=== PATIENT | male | born 1950 | race Caucasian/White ===

== ENCOUNTER 2023-05-12 08:42 | Outpatient (CLI) | payer MEDICARE, SELFPAY ==
--- NOTE | 2023-05-12 08:50 | EST_ITS ---
Patient Info Name: Herman Smalls Age: 72 years : 1950 Gender: Male Ht: 70 in Wt: 198 lbs BSA: 2.12 m2 HR: 51 bpm Technical Quality: Good Exam Date: 05/12/2023 9:11 AM Exam Location: [facility] Patient Status: Outpatient Admit Date: 05/12/2023 Staff Ordering Physician: Nathan Echavarria MD Bioinformatics Associate: Mally Tee RDCS Attending Provider: MACHELLE CASTANEDA DO Referring Physician: Jericho BURNS; Exercise Technologist: Karen Hickman RDCS Exam Type: CA stress echo Study Info Indications R06.09 - Other forms of dyspnea Treadmill exercise stress echocardiogram is performed. Summary 1. 1. Negative Scott exercise stress test for ischemic ST changes by ECG criteria. 2. 2. Good functional capacity, achieving 10 METs of workload. 3. 3. Appropriate HR response to exercise. 4. 4. Appropriate HR recovery at 1 minute post exercise. 5. 5. Negative stress echocardiogram for ischemia by wall motion analysis. 6. 6. Patient informed of the above results. Stress Echo Findings Left Ventricle Appropriate increase in LV endocardial thickening with systole. Appropriate augmentation of contractility with systole. No wall motion abnormality. Left Ventricle Normal LV systolic function, no wall motion abnormality. Protocol: Scott Stress ECG Details Stage: REST Duration (min): 0 min : 51 sec Speed (mph): 0.0 Grade (%): 0 HR (bpm): 47 SBP (mmHg): 130 DBP (mmHg): 77 METS: --- Stage: REST Duration (min): 9 min : 42 sec Speed (mph): 0.0 Grade (%): 0 HR (bpm): 53 SBP (mmHg): 130 DBP (mmHg): 77 METS: --- Stage: STAGE 1 Duration (min): 1 min : 0 sec Speed (mph): 1.7 Grade (%): 10 HR (bpm): 77 SBP (mmHg): 130 DBP (mmHg): 77 METS: --- Stage: STAGE 1 Duration (min): 2 min : 0 sec Speed (mph): 1.7 Grade (%): 10 HR (bpm): 84 SBP (mmHg): 130 DBP (mmHg): 77 METS: --- Stage: STAGE 1 Duration (min): 3 min : 0 sec Speed (mph): 1.7 Grade (%): 10 HR (bpm): 89 SBP (mmHg): 153 DBP (mmHg): 70 METS: --- Stage: STAGE 2 Duration (min): 1 min : 0 sec Speed (mph): 2.5 Grade (%): 12 HR (bpm): 96 SBP (mmHg): 153 DBP (mmHg): 70 METS: --- Stage: STAGE 2 Duration (min): 2 min : 0 sec Speed (mph): 2.5 Grade (%): 12 HR (bpm): 100 SBP (mmHg): 165 DBP (mmHg): 73 METS: --- Stage: STAGE 2 Duration (min): 3 min : 0 sec Speed (mph): 2.5 Grade (%): 12 HR (bpm): 101 SBP (mmHg): 165 DBP (mmHg): 73 METS: --- Stage: STAGE 3 Duration (min): 1 min : 0 sec Speed (mph): 3.4 Grade (%): 14 HR (bpm): 111 SBP (mmHg): 183 DBP (mmHg): 83 METS: --- Stage: STAGE 3 Duration (min): 2 min : 0 sec Speed (mph): 3.4 Grade (%): 14 HR (bpm): 124 SBP (mmHg): 183 DBP (mmHg): 83 METS: --- Stage: STAGE 3 Duration (min): 2 min : 11 sec Speed (mph): 0.0 Grade (%): 0 HR (bpm): 127 SBP (mmHg): 183 DBP (mmHg): 83 METS: --- Stage: RECOVERY Duration (min):
== END 2023-05-12 08:43 | disposition home or self-care (01) ==
PROVIDERS: PCP Family Medicine; Visit Provider Family Medicine
DX: R06.09 Other forms of dyspnea (principal)
CPT/HCPCS: 93351

== ENCOUNTER 2023-08-22 11:54 | Emergency (ER) | payer MEDICARE, SELFPAY ==
--- NOTE | ~2023-08-22 | XR_ITS ---
XR elbow LT min 3V 08/22/2023 12:17 INDICATION: Left elbow pain PROCEDURE: 4 views left elbow COMPARISON: No prior studies for comparison. FINDINGS: Fracture, dislocation or subluxation is not identified. There is curvilinear ossification a long the medial humeral epicondyle, likely calcific tendinopathy. No significant joint effusion. Mode rate dorsal soft tissue swelling, nonspecific. No foreign bodies are identified. IMPRESSION: 1: NO ACUTE BONE OR JOINT ABNORMALITY IDENTIFIED. Reviewed, dictated and finalized at location A. ERN FINISHER
[2023-08-22 12:01] VITALS: BP 115/64; PULSE 62; RESP 20; TEMP 36.7; O2SAT 98
--- NOTE | 2023-08-22 13:20 | ED.GENADULT ---
HPI - General Adult General Chief complaint: Extremity Problem,Nontraumatic Stated complaint: elbow infection? Time Seen by Provider: 08/22/23 12:35 History of Present Illness HPI narrative: 72-year-old male presents to the emergency department for evaluation of left elbow pain. Patient states that he struck the left elbow on an arm rest. Patient states he initially had a lot of swelling and edema but that the erythema has begun to improve. Patient presents the ED complaining of persistent pain. Patient has normal range of motion Related Data Allergies Allergy/AdvReac Type Severity Reaction Status Date / Time No Known Allergies Allergy Verified 08/22/23 11:55 Review of Systems Review of Systems: All systems reviewed & are unremarkable except as noted in HPI and below PMFSH Past Medical History Medical History BPH (benign prostatic hyperplasia) Overweight (BMI 25.0-29.9) Surgical History Surgical History History of arthroscopy of left shoulder (~10/24/10) History of arthroscopy of right shoulder (~2009) History of colonoscopy (~06/16/17) normal, repeat 5-7 years History of colonoscopy (~04/17/12) tubular adenoma Family History Family History Father Family history of blood dyscrasia, Onset Age: 46 Family history of cardiovascular disease, Onset Age: 46 Acute myocardial infarction, Onset Age: 46 Mother Family history of malignant neoplasm of ovary, Onset Age: 73 Other Family history of elevated blood lipids Social History Social History Smoking status: Former smoker Smoking end date: 08/25/96 Alcohol intake: current Drinks per week: 8 Substance use: never Substance use type: does not use Occupation/Education: retired Gender identity (if verbalized by the patient): Male Exam Narrative: APPEARANCE: Well appearing, no pain, no distress, well-nourished. HEAD: normocephalic, atraumatic. EYES: PERRLA/EOMI, conjunctivae clear. NOSE: Normal no drainage EARS:TMS clear with good light reflex. THROAT: Pharynx clear, no exudate. NECK: Supple. No adenopathy, no masses. RESPIRATORY: Airway patent, respirations nonlabored. Clear to auscultation bilaterally, no rales, rhonchi, wheezing. CARDIOVASCULAR: Regular rate and rhythm without murmurs rubs or gallops. ABDOMINAL: Soft, nontender, nondistended, normal bowel sounds MUSCULOSKELETAL: Swollen bursa of the left elbow, minimal overlying erythema NEURO: Alert. Cranial nerves II through XII intact. Grossly intact SKIN: Warm, dry. Normal Color Course Course Emergency Course: 72-year-old male presenting ED for evaluation of left elbow pain. X-ray was negative for acute fracture dislocation. Patient's exam is consistent with a bursitis. Low concern for septic bursitis but patient does describe some previous overlying erythema. Patient will be started on a short course antibiotics and patient was advised on treatment plan for home. All questions and concerns were addressed patient was comfortable with plan for discharge and close follow-up. Vital Signs Vital signs: Vital Signs Temperature 98.0 F 08/22/23 12:01 Pulse Rate 62 08/22/23 12:01 Respiratory Rate 20 08/22/23 12:01 Blood Pressure 115/64 08/22/23 12:01 Pulse Oximetry 98 08/22/23 12:01 Oxygen Delivery Room Air 08/22/23 12:01 Temperature 98.0 F 08/22/23 12:01 Pulse Rate 62 08/22/23 12:01 Respiratory Rate 20 08/22/23 12:01 Blood Pressure 115/64 08/22/23 12:01 Pulse Oximetry 98 08/22/23 12:01 Oxygen Delivery Room Air 08/22/23 12:01 Medical Decision Making Differential Diagnosis Differential Diagnosis: Bursitis, septic arthritis, septic bursitis, elbow contusion, elbow fracture Vital Signs Priyanka
== END 2023-08-22 13:41 | disposition home or self-care (01) ==
PROVIDERS: Emergency Provider Emergency Medicine; PCP Family Medicine
DX: M71.9 Bursopathy, unspecified (principal); N40.0 Benign prostatic hyperplasia without lower urinary tract symptoms; E66.3 Overweight; Z68.28 Body mass index [BMI] 28.0-28.9, adult; Z87.891 Personal history of nicotine dependence; W22.8XXA Striking against or struck by other objects, initial encounter
CPT/HCPCS: 73080; 99283

== ENCOUNTER 2023-11-04 00:50 | Day surgery (SDC) | payer MEDICARE, SELFPAY ==
[2023-10-22 10:21] VITALS: BMI 29.9
--- NOTE | 2023-10-31 10:05 | SUR.PREOP ---
Patient called regarding upcoming procedure. Voicemail left regarding appointment times.
[2023-11-04 06:56] VITALS: BP 147/96; PULSE 69; RESP 20; TEMP 36.3; O2SAT 100; BMI 29.1
[2023-11-04] MEDS: LACTATED RINGERS 1,000 ML 150 ML IV CONT (07:00)
--- NOTE | 2023-11-04 07:08 | WPDANESEPPF ---
Anes - Initial Pre Proc Eval Procedure: Operation Date: 11/04/23 08:00 Proposed Procedures p Screening Colonoscopy - Rudy Lemus MD Date/Time: 11/04/23 07:08 Surgeon: Rudy Lemus MD Pre Op Diagnosis: neoplasm screening Patient Data Age: 72 Gender: M Height: 1.75 m Weight: 89.6 kg Last Vital Signs Temp 36.3 C L 11/04/23 06:56 Pulse 69 11/04/23 06:56 Resp 20 11/04/23 06:56 BP 147/96 H 11/04/23 06:56 Pulse Ox 100 11/04/23 06:56 O2 Del Method Room Air 11/04/23 06:56 Allergies Allergy/AdvReac Type Severity Reaction Status Date / Time No Known Allergies Allergy Verified 11/04/23 06:54 Home Medications Medication Instructions Recorded Confirmed Type atorvastatin 10 mg tablet 10 mg PO DAILY #90 tabs 01/24/23 11/04/23 Rx fenofibrate nanocrystallized 145 145 mg PO DAILY #90 tabs 01/24/23 11/04/23 Rx mg tablet finasteride 5 mg tablet 5 mg PO DAILY #90 tabs 01/24/23 11/04/23 Rx solifenacin 5 mg tablet (Vesicare) 5 mg PO DAILY #90 tabs 01/24/23 11/04/23 Rx losartan 100 1 tablet PO DAILY #90 tabs 07/22/23 11/04/23 Rx mg-hydrochlorothiazide 25 mg tablet metoprolol tartrate 50 mg tablet 50 mg PO Q12H #180 tabs 07/22/23 11/04/23 Rx sertraline 50 mg tablet 50 mg PO DAILY #90 tabs 07/22/23 11/04/23 Rx spironolactone 50 mg tablet 25 mg PO DAILY #90 tabs 07/22/23 11/04/23 Rx metformin 500 mg 24 hr 500 mg PO DAILY #90 tabs 07/24/23 11/04/23 Rx tablet,extended release (gastric retention) cephalexin 250 mg capsule 250 mg PO Q8H 7 days #21 caps 10/13/23 10/22/23 Rx cephalexin 500 mg capsule 500 mg PO Q8H #21 caps 10/20/23 10/22/23 Rx fluticasone propionate 50 2 spray intranasal DAILY PRN 10/22/23 11/04/23 History mcg/actuation nasal Allergies spray,suspension (Flonase Allergy Relief) Patient hx anesthesia problems: none Family hx anesthesia problems: none Results Review: All pre-operative results and documents have been reviewed as part of the pre-operative evaluation. [facility] Past Medical History Medical History (Updated 11/04/23 @ 07:09 by Roland Quintana DO) BPH (benign prostatic hyperplasia) Cardiomegaly Diabetes type 2, controlled Essential (primary) hypertension Generalized anxiety disorder Mixed hyperlipidemia Obstructive sleep apnea CPAP Overweight (BMI 25.0-29.9) Surgical History Surgical History History of arthroscopy of left shoulder (~10/24/10) History of arthroscopy of right shoulder (~2009) History of colonoscopy (~06/16/17) normal, repeat 5-7 years History of colonoscopy (~04/17/12) tubular adenoma Family History Family History Father Family history of blood dyscrasia, Onset Age: 46 Family history of cardiovascular disease, Onset Age: 46 Acute myocardial infarction, Onset Age: 46 Mother Family history of malignant neoplasm of ovary, Onset Age: 73 Other Family history of elevated blood lipids Social History Social History Years smoked: 30 Smoking status: Former smoker Smoking end date: 08/25/96 Alcohol intake: current Drinks per week: 6 Alcohol use details: 6 beers/week Substance use: never Substance use type: marijuana Other substance usage details: 2x/week Living arrangements: with family Occupation/Education: retired Gender identity (if verbalized by the patient): Male Spiritual care concerns: No Anes - Eval Final PreProcedure Day of Procedure 11/04/23 07:08 Patient weight: overweight Heart: regular rate and rhythm Lungs: clear to auscultation Airway: Mallampati scale class II Neurological: alert and oriented Last oral intake: >/= 8 hours ASA classification: III Emergent: no Anesthetic plan: proceed Anesthesia type and monitoring: general GIVS and standard mo
[2023-11-04 07:20] LABS: Glucose Point of Care 102 mg/dl (65-105)
--- NOTE | 2023-11-04 07:56 | PM.HPGS ---
History of Present Illness History of Present Illness Consent: Risks, benefits, and alternatives have been discussed and questions answered. Patient agrees to proceed with procedure. Chief complaint: neoplasm screening Narrative: Herman Smalls is a 72 year old male here for screening colonoscopy, last one 2016 Review of Systems Review of Systems: All systems reviewed & are unremarkable except as noted in HPI and below PMFSH Past Medical History Medical History (Updated 11/04/23 @ 07:56 by Rudy Lemus MD) BPH (benign prostatic hyperplasia) Cardiomegaly Colon cancer screening Diabetes type 2, controlled Essential (primary) hypertension Generalized anxiety disorder Mixed hyperlipidemia Obstructive sleep apnea CPAP Overweight (BMI 25.0-29.9) Surgical History Surgical History History of arthroscopy of left shoulder (~10/24/10) History of arthroscopy of right shoulder (~2009) History of colonoscopy (~06/16/17) normal, repeat 5-7 years History of colonoscopy (~04/17/12) tubular adenoma Family History Family History Father Family history of blood dyscrasia, Onset Age: 46 Family history of cardiovascular disease, Onset Age: 46 Acute myocardial infarction, Onset Age: 46 Mother Family history of malignant neoplasm of ovary, Onset Age: 73 Other Family history of elevated blood lipids Social History Social History Years smoked: 30 Smoking status: Former smoker Smoking end date: 08/25/96 Alcohol intake: current Drinks per week: 6 Alcohol use details: 6 beers/week Substance use: never Substance use type: marijuana Other substance usage details: 2x/week Living arrangements: with family Occupation/Education: retired Gender identity (if verbalized by the patient): Male Spiritual care concerns: No Meds Home Medications and Allergies Home Medications Medication Instructions Recorded Confirmed Type atorvastatin 10 mg tablet 10 mg PO DAILY #90 tabs 01/24/23 11/04/23 Rx fenofibrate nanocrystallized 145 145 mg PO DAILY #90 tabs 01/24/23 11/04/23 Rx mg tablet finasteride 5 mg tablet 5 mg PO DAILY #90 tabs 01/24/23 11/04/23 Rx solifenacin 5 mg tablet (Vesicare) 5 mg PO DAILY #90 tabs 01/24/23 11/04/23 Rx losartan 100 1 tablet PO DAILY #90 tabs 07/22/23 11/04/23 Rx mg-hydrochlorothiazide 25 mg tablet metoprolol tartrate 50 mg tablet 50 mg PO Q12H #180 tabs 07/22/23 11/04/23 Rx sertraline 50 mg tablet 50 mg PO DAILY #90 tabs 07/22/23 11/04/23 Rx spironolactone 50 mg tablet 25 mg PO DAILY #90 tabs 07/22/23 11/04/23 Rx metformin 500 mg 24 hr 500 mg PO DAILY #90 tabs 07/24/23 11/04/23 Rx tablet,extended release (gastric retention) cephalexin 250 mg capsule 250 mg PO Q8H 7 days #21 caps 10/13/23 10/22/23 Rx cephalexin 500 mg capsule 500 mg PO Q8H #21 caps 10/20/23 10/22/23 Rx fluticasone propionate 50 2 spray intranasal DAILY PRN 10/22/23 11/04/23 History mcg/actuation nasal Allergies spray,suspension (Flonase Allergy Relief) Allergies Allergy/AdvReac Type Severity Reaction Status Date / Time No Known Allergies Allergy Verified 11/04/23 06:54 Vital Signs Vital Signs - 24 hr 11/04/23 06:56 Temperature 97.3 F L Pulse Rate 69 Respiratory Rate 20 Blood Pressure 147/96 H Pulse Oximetry 100 Oxygen Delivery Room Air Exam Const: General: comfortable and no acute distress HENMT: Face/Nose/Sinus: Normal nares present Eyes: General: appearance normal, both eyes and all related structures Neck: Neck: no JVD Resp: Auscultation: clear to auscultation bilaterally Cardio: Rate: regular rate Rhythm: regular rhythm GI: Inspection: non-distended GI Palp: Yes Soft to palpation Skin: General skin exam: normal color Neuro: General: gait n
[2023-11-04 08:13] VITALS: BP 129/90; PULSE 59; RESP 14; O2SAT 97
[2023-11-04 08:23] VITALS: BP 130/77; PULSE 52; RESP 25; O2SAT 97
[2023-11-04 08:33] VITALS: BP 140/74; PULSE 55; RESP 23; O2SAT 99
== END 2023-11-04 08:36 | disposition home health service (06) ==
PROVIDERS: PCP Family Medicine; Visit Provider Internal Medicine Gastroenterology
PROC: 0DJD8ZZ Inspection of Lower Intestinal Tract, Via Natural or Artificial Opening Endoscopic (ICD-10-PCS; CPT 45378; principal; 2023-11-04 08:00)
DX: Z12.11 Encounter for screening for malignant neoplasm of colon (principal); C7A.021 Malignant carcinoid tumor of the cecum; K57.30 Diverticulosis of large intestine without perforation or abscess without bleeding; K64.8 Other hemorrhoids; N40.0 Benign prostatic hyperplasia without lower urinary tract symptoms; E11.9 Type 2 diabetes mellitus without complications; I10 Essential (primary) hypertension; F41.1 Generalized anxiety disorder; E78.2 Mixed hyperlipidemia; G47.33 Obstructive sleep apnea (adult) (pediatric); Z99.89 Dependence on other enabling machines and devices; F10.90 Alcohol use, unspecified, uncomplicated; Z86.010 Personal history of colon polyps; Z87.891 Personal history of nicotine dependence; Z79.2 Long term (current) use of antibiotics; Z79.899 Other long term (current) drug therapy
CPT/HCPCS: 45380; 82948; 88305; 88342; J2704; J7120

== ENCOUNTER 2024-03-30 15:48 | Emergency (ER) | payer MEDICARE, SELFPAY ==
[2024-03-30 15:50] VITALS: BP 158/82; PULSE 62; RESP 16; TEMP 36.2; O2SAT 100
--- NOTE | 2024-03-30 17:53 | ED.RECABL ---
HPI - Recheck/Abnormal Lab/Rx General Chief Complaint: Recheck/Abnormal Lab/Rx Stated Complaint: abnormal labs Time Seen by Provider: 03/30/24 17:07 Source: patient Mode of arrival: ambulatory Limitations: no limitations History of Present Illness HPI narrative: This is a 73-year-old male with PMH of neuroendocrine metastatic cancer who presents to the ED for abnormal lab values. Reports that he was having his monthly labs for a monthly injection. States that his creatinine was significantly elevated and that he should go to the ER. Patient states that he is asymptomatic at this time. Denies any medical complaint. is here bedside and states that he has been acting his normal self. Related Data Home Medications Medication Instructions Recorded Confirmed fluticasone propionate 50 2 spray intranasal DAILY PRN 10/22/23 11/04/23 mcg/actuation nasal Allergies spray,suspension (Flonase Allergy Relief) spironolactone 25 mg tablet mg PO 03/12/24 Allergies Allergy/AdvReac Type Severity Reaction Status Date / Time No Known Allergies Allergy Verified 03/12/24 09:27 Review of Systems Review of Systems: All systems as dictated in HPI [facility] Past Medical History Medical History BPH (benign prostatic hyperplasia) Cardiomegaly Colon cancer screening Diabetes type 2, controlled Essential (primary) hypertension Generalized anxiety disorder Mixed hyperlipidemia Obstructive sleep apnea CPAP Overweight (BMI 25.0-29.9) Surgical History Surgical History History of arthroscopy of left shoulder (~10/24/10) History of arthroscopy of right shoulder (~2009) History of colonoscopy (~06/16/17) normal, repeat 5-7 years History of colonoscopy (~04/17/12) tubular adenoma Family History Family History Father Family history of blood dyscrasia, Onset Age: 46 Family history of cardiovascular disease, Onset Age: 46 Acute myocardial infarction, Onset Age: 46 Mother Family history of malignant neoplasm of ovary, Onset Age: 73 Other Family history of elevated blood lipids Social History Social History Years smoked: 30 Smoking status: Former smoker Smoking end date: 08/25/96 Alcohol intake: current Drinks per week: 6 Alcohol use details: 6 beers/week Substance use: never Substance use type: marijuana Other substance usage details: 2x/week Living arrangements: with family Occupation/Education: retired Gender identity (if verbalized by the patient): Male Spiritual care concerns: No Exam Narrative: GENERAL: Well-appearing, well-nourished, and in no acute distress. HEAD: Normocephalic, atraumatic. EYES: PERRLA and EOMI. ENT: Nares clear, no rhinorrhea or epistaxis. Mucous membranes moist. Oropharynx without tonsillar hypertrophy exudate or other lesions. NECK: Supple. No adenopathy or masses. CHEST: No respiratory distress. Clear to auscultation. No wheezes rales or rhonchi HEART: Regular rate and rhythm. No murmur heard. Normal peripheral pulses. ABDOMEN: Soft, nontender, nondistended, normal active bowel sounds. MSK: Normal range of motion. No edema. SKIN: Warm, dry, no rash. NEURO: Alert and oriented x4. No focal deficits. PSYCH: Normal mood and affect. Course Vital Signs Vital signs: Vital Signs Temperature 97.1 F L 03/30/24 15:50 Pulse Rate 62 03/30/24 15:50 Respiratory Rate 16 03/30/24 15:50 Blood Pressure 158/82 H 03/30/24 15:50 Pulse Oximetry 100 03/30/24 15:50 Oxygen Delivery Room Air 03/30/24 15:50 Temperature 97.1 F L 03/30/24 15:50 Pulse Rate 52 L 03/30/24 18:43 Respiratory Rate 18 03/30/24 18:43 Blood Pressure 143/94 H 03/30/24 18:43 Pulse Oximetry 97
[2024-03-30 17:57] LABS: Basophils Percent Auto 0.4 % (0.2-1.2); Eosinophils Absolute Auto 0.1 K/mm3 (0-0.3); Eosinophils Percent Auto 1.2 % (0-4.4); Hematocrit 40.6 % (42.0-52.0); Hemoglobin 13.4 g/dL (14.0-18.0); Immature Granulocyte Absolute 0.02 K/mm3 (0.00-0.031); Immature Granulocyte Percent A 0.3 % (0-0.5); Lymphocytes Absolute Auto 1.57 K/mm3 (0.9-3.2); Lymphocytes Percent Auto 23.4 % (18.3-44.2); Mean Corpuscular Hemoglobin 29.9 pg (26-34); Mean Corpuscular Volume 90.6 fl (80-100); Mean Platelet Volume 9.7 fl (7.4-10.4); Monocytes Absolute Auto 0.6 K/mm3 (0.1-0.6); Monocytes Percent Auto 9.4 % (2.6-8.5); Neutrophils Absolute Auto 4.4 K/mm3 (1.3-6.7); Neutrophils Percent Auto 65.3 % (45.5-73.1); Platelet Count Result 187 k/mm3 (150-375); Red Blood Count 4.48 M/mm3 (4.6-6.20); Red Cell Distribution Width 14.1 % (11.5-14.5); White Blood Count 6.7 K/mm3 (4.5-10.0)
[2024-03-30 18:07] LABS: Anion Gap 12 mmol/L (4-12); Blood Urea Nitrogen 62 mg/dL (9-20); Calcium 9.9 mg/dL (8.4-10.2); Carbon Dioxide 25 mmol/L (22-30); Chloride 101 mmol/L (98-107); Estimated Glomerular Filt Rate 24; Glucose 106 mg/dL (65-110); Magnesium 1.8 mg/dL (1.6-2.3); Phosphorus 4.4 mg/dL (2.5-4.5); Potassium 5.5 mmol/L (3.4-5.0); Sodium 138 mmol/L (137-145)
[2024-03-30] MEDS: SODIUM CHLORIDE 0.9% IV 1,000 ML 999 ML IV CONT (18:40)
[2024-03-30 18:43] VITALS: BP 143/94; PULSE 52; RESP 18; O2SAT 97
[2024-03-30 18:49] LABS: Add Urine Microscopic? NO; Appearance Urine Clear (Clear); Bilirubin Urine Negative (Negative); Blood Urine Negative (Negative); Color Urine Yellow (Yellow); Glucose Urine UA Negative (Negative); Ketones Urine Trace mg/dL (Negative); Leukocyte Esterase Ur Negative LEU/UL (Negative); Nitrate Urine Negative (Negative); Protein Urine Negative (Negative); Specific Grav Ur 1.022 (1.001-1.035); Urobilinogen Urine 0.2 mg/dL (<2.0)
== END 2024-03-30 19:51 | disposition home or self-care (01) ==
PROVIDERS: Emergency Provider Physician Assistant; PCP Family Medicine
DX: R94.4 Abnormal results of kidney function studies (principal); E11.9 Type 2 diabetes mellitus without complications; I10 Essential (primary) hypertension; E78.2 Mixed hyperlipidemia; Z87.891 Personal history of nicotine dependence
CPT/HCPCS: 36415; 80048; 81003; 83735; 84100; 85025; 96360; 99283; J7030

== ENCOUNTER 2025-05-24 07:52 | Outpatient (CLI) | payer MEDICARE, SELFPAY ==
--- OUTSIDE RECORDS SUMMARY | 2025-05-24 07:59 | XMS_ITS | Encounter Summary ---
Author Organization [facility] Address [address] [place] [address] Phone Care Team Providers Care Tetryl Dissolver Operator Name Role Phone Nathan Echavarria MD Primary Care Provider [phone] Monico Bryant MD Unavailable [phone] Encounter Details Date Type Department Care Team (Latest Contact Info) Description 05/12/2023 Orders Only [facility] Scanning, Provider Social History Tobacco Use Types Packs/Day Years Used Date Smoking Tobacco: Never Assessed Sex and Gender Information Value Date Recorded Sex Assigned at Not on file Legal Sex Male 1:24 PM CDT Gender Identity Not on file Sexual Orientation Not on file documented as of this encounter Plan of Treatment Not on file documented as of this encounter Procedures Procedure Name Priority Date/Time Associated Diagnosis Comments CARDIOLOGY DOCUMENT SCAN 05/12/2023 documented in this encounter Results * Cardiology Document Scan (05/12/2023) Anatomical Region Laterality Modality Other us Provider Scanning CV CARDIAC SERVICES PROCEDURES Final Result documented in this encounter Visit Diagnoses Not on filedocumented in this encounter Care Teams Tetryl Dissolver Operator Relationship Specialty Start Date End Date Nathan Echavarria MD [address] [place] [address] PCP - General Family Medicine 11/11/23 Monico Bryant MD [address] [facility] [place] [address] Consulting Physician Medical Oncology 01/06/24 documented as of this encounter
--- OUTSIDE RECORDS SUMMARY | 2025-05-24 08:00 | XMS_ITS | Clinical Summary ---
Author Organization [facility] Address [address] [place] [address] Care Team Providers Care Identity Management Developer Name Role Phone Nathan Echavarria MD Primary Care Provider [phone] Monico Bryant MD Unavailable [phone] Allergies No known active allergies Medications solifenacin (VESIcare) 10 mg tablet Take 1 tablet (10 mg total) by mouth daily Active finasteride (PROSCAR) 5 mg tablet Take 1 tablet (5 mg total) by mouth daily Active atorvastatin (LIPITOR) 10 mg tablet Take 1 tablet (10 mg total) by mouth daily 12/16/19 24 Active fenofibrate nanocrystallized (TRICOR) 145 mg tablet Take 1 tablet (145 mg total) by mouth daily Active metFORMIN (GLUCOPHAGE) 500 mg tablet Take 1 tablet (500 mg total) by mouth 2 (two) times a day with meals Active alcohol swabs (Alcohol Wipes) pads, medicated Use as directed. 100 each 10/13/19 25 Active blood glucose diagnostic (glucose blood) strip Use as directed up to four times a day. 100 each 1 10/13/19 25 Active blood-glucose meter kit Use as directed. 1 kit 10/13/19 25 Active lancets misc Use as directed up to 4 times a day. 100 each 1 10/13/19 25 Active glucagon 1 mg kitIndications:Type 2 diabetes mellitus with hyperglycemia, without long-term current use of insulin (HCC) Inject 1 mg into the muscle once as directed by provider for low blood sugar, 70 or below. 1 kit 10/14/19 25 Active chlorhexidine (PERIDEX) 0.12 % oral rinse SWISH AND SPIT 15ML BY MOUTH FOR 30 SECONDS 2 TO 3 TIMES DAILY 10/27/19 25 Active sertraline (ZOLOFT) 100 mg tablet Take 1 tablet (100 mg total) by mouth daily 11/02/19 25 Active losartan-hydrochloro thiazide (HYZAAR) 100-25 mg per tablet Take 1 tablet by mouth daily 90 tablet 3 01/06/20 25 Active lanreotide acetate (LANREOTIDE SUBQ) Inject under the skin Active blood-glucose sensor (FreeStyle Ramon 3 Plus Sensor) device Use to check blood sugar continuously 2 each 01/20/20 25 Active insulin glargine (LANTUS) 100 unit/mL (3 mL) pen for injectionIndications :Type 2 diabetes mellitus with hyperglycemia, without long-term current use of insulin (HCC) Inject 6 Units under the skin nightly 6 mL 3 01/20/20 25 026 Active spironolactone (ALDACTONE) 25 mg tablet Take 1 tablet (25 mg total) by mouth daily 90 tablet 3 03/22/20 25 026 Active Active Problems Problem Noted Date Diagnosed Date Hyperosmolar hyperglycemic state (HHS) Severe protein-calorie malnutrition 10/14/2024 Type 2 diabetes mellitus wit h hyperglycemia, without long-term current use of insulin 10/12/2024 Assessment & Plan (10/14/2024 10:35 AM INSURANCE FOLLOW UP REP): Pt w/ symptomatic hyperglycemia w/ fatigue, polydipsia, polyuria, and 15lb weight loss w/ BG in th 550s and labs suggestive of dehydration and A1c 13.2. not meeting criteria for HHS or DKA. This appears to be an acute change and unclear precipitant but there is an association of worsening or precipitated diabetes related to NET. -c-peptide, type 1 profile, PATI -s/p IVF and hyperglycemia protocol. -Start basal bolus based on algorithm; increased to resistant dosing -DM educator, and nutrition consulted; seen on 10/13 and did well with education. -good glucose control achieved with lantus 22 units nightly and 7 units lispro TID. Will DC home with current regimen. Recommend close follow up with PCP for adjustment and continued monitoring. -endocrinology referral placed on discharge. Acute on chronic kidney failure 10/12/2024 Assessment & Plan (10/14/2024 10:32 AM INSURANCE FOLLOW UP REP): In the setting of severe hyperglycemia. Improved with IVF and improved glycemic control. Restarted aldactone and losartan. Encourage hydration and follow up with PCP for repeat labs next week to ensure continued improvement. High risk medication use 09/22/2024 Former tobacco use 09/22/2024 RAUDEL on CPAP 09/22/2024 Assessment & Plan (10/12/2024 4:58 PM INSURANCE FOLLOW UP REP): Home CPAP Mixed hyperlipidemia 03/11/2024 Assessment & Plan (10/12/2024 5:00 PM INSURANCE FOLLOW UP REP): Continue statin and fenofibrate Bradycardia 03/10/2024 Primary hypertension 03/10/2024 Assessment & Plan (10/14/2024 10:31 AM INSURANCE FOLLOW UP REP): Cont home losartan/hctz and spironolactone now that RASHAD and hyperkalemia improved. Recommend close OP follow up with PCP and repeat BMP in 1 week. 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 -Trikalinos is oncologist. Continue OP follow up. Resolved Problems Problem Noted Date Diagnosed Date Resolved Date Hyperosmolar hyperglycemic state (HHS) 10/12/2024 10/12/2024 Encounters Date Type Department Care Team Description 05/03/2025 11:[address] [facility] - Infusion [address] Floor 5 [place] [address] Neuroendocrine cancer (HCC) (Primary Dx) 05/03/2025 10:[address] [facility] - Lab Collection [address] 5 [place] [address] Neuroendocrine cancer (HCC) 04/05/2025 10:45 AM CDT Infusion [facility] - Infusion [address] 5 [place] [address] Neuroendocrine cancer (HCC) (Primary Dx) 04/05/2025 9:45 AM CDT Office Visit [facility] Medicine Oncology [address] [facility] Floor 5 [place] [address] Wanda Portillo NP Neuroendocrine cancer (HCC) (Primary Dx) 04/05/2025 8:[address] [facility] - Lab Collection [facility] [place] [address] Neuroendocrine cancer (HCC); Primary hypertension; Bradycardia; Coronary artery calcification seen on CAT scan; Mixed hyperlipidemia; High risk medication use 04/05/2025 Results Follow-Up [facility] [address] [place] [address] [address] [place] [address] Lindsay Montilla NP Lipid panel 03/31/2025 12:01 PM CDT - 03/31/2025 11:59 PM CDT Hospital Encounter [facility] - PET [address] [facility] [address] [place] [address] Discharge Disposition: Discharge to home or self care 03/31/2025 12:00 PM CDT - 03/31/2025 11:59 PM CDT Hospital Encounter [facility] - PET [address] [place] [address] Neuroendocrine cancer (HCC) Discharge Disposition: Discharge to home or self care 03/28/2025 1:00 PM CDT Office Visit [facility] [address] [place] [address] Floor 1, [address] [place] [id number] Lindsay Montilla NP Primary hypertension (Primary Dx); Neuroendocrine cancer (HCC); Bradycardia; Coronary artery calcification seen on CAT scan; Mixed hyperlipidemia; High risk medication use; Former tobacco use; RAUDEL on CPAP 03/08/2025 9:[address] [facility] - Infusion [address] 5 [place] [address] Neuroendocrine cancer (HCC) (Primary Dx) 03/08/2025 8:30 AM CDT Office Visit [facility] Medicine Oncology [address] [facility] Floor 5 [place] [address] Wanda Portillo NP Neuroendocrine cancer (HCC) (Primary Dx) 03/08/2025 7:[address] [facility] - Lab Collection [address] [facility] [address] [place] [address] Neuroendocrine cancer (HCC) from Last 3 Months Immunizations Immunization Administration Dates Next Due Influenza, Quadrivalent, Hig h Dose, Preservative Free, Intrr 10/24/2023,05/25/2022 Influenza, Quadrivalent, Rec ombinant, Egg Free, Preservative Free, Intramuscular 07/27/2020 Influenza, Trivalent, High D ose, Split, Preservative Free, Intramuscular 10/12/2024 Pneumococcal Conjugate Pcv20 10/24/2023,05/25/20 22 Pneumococcal Polysaccharide PPV23 11/29/2019 Medical History Medical History Date Comments Diabetes mellitus Hypertension Neuro-endocrine cancer (HCC) Family History Medical History Relation Name Comments Heart disease Father Ovarian cancer Mother Stroke Paternal Grandmother Crohn's disease Son Relation Name Status Comments Father Mother Paternal Grandmother Son Social History Tobacco Use Types Packs/Day Years Used Date Smoking Tobacco: Former Cigarettes 0 08/25/1977 - 08/25/1997 Passive Smoke Exposure: Past Smokeless Tobacco: Never Personal Safety Answer Date Recorded Have you ever been in or are you currently in a harmful physical or emotional relationship or is someone making you feel afraid or unsafe? Denies 10/12/2024 Sex and Gender Information Value Date Recorded Sex Assigned at Not on file Legal Sex Male 1:24 PM CDT Gender Identity Not on file Sexual Orientation Not on file Obstetrics History Last Filed Vital Signs Vital Sign Reading Time Taken Comments Blood Pressure 149/66 05/03/2025 11:34 AM CDT Pulse 51 05/03/2025 11:34 AM CDT Temperature 36.7 C (98.1 F) 05/03/2025 11:34 AM CDT Respiratory Rate 18 05/03/2025 11:3 4 AM CDT Oxygen Saturation 98% 05/03/2025 11: 34 AM CDT Inhaled Oxygen Concentration - - Weight 80.6 kg (177 lb 11.1 oz) 025 11:34 AM CDT Height 172.7 cm (5' 8) 04/05/2025 8:48 AM CDT Body Mass Index 27.02 04/05/2025 8:48 AM CDT Plan of Treatment Health Maintenance Due Date Last Done Comments Albumin Creatinine Ratio, Urine 1950 Colon Cancer Screening-Colonoscopy 1950 Depression Screening 1950 Hepatitis C Screening 1950 Dilated Eye Exam 1950 Foot Exam 1950 Hepatitis B Screening 1968 Zoster Vaccine (1 of 2) 1969 Well Visit 65+ 11/17/2015 DTaP/Tdap/Td Vaccine (2 - Td or Tdap) 11/05/2023 11/04/2013, 10/27/2003 Covid-19 Vaccine (2 6 season) 2025 05/25/2022, 06/13/2021, 11/18/2020, Additional history exists Influenza Vaccine (#1) 2025 , 06/10/2024, 10/24/2023, Additional history exists Hemoglobin A1C 07/22/2025 01/19/2025, 10/12/2024 Fall Risk Assessment 10/14/2025 10/14/2024 Lipid Panel 04/05/2026 04/05/2025, 03/30/2024 eGFR 05/03/2026 05/03/2025, 03/25, 03/08/2025, Additional history exists Pneumococcal vaccine 65+ Completed 024, 05/25/2022, 11/29/2019, Additional history exists Abdominal Aortic Aneurysm (A AA) Screen Completed 02/03/2025, 09/23/2024, 06/03/2024 Procedures Procedure Name Priority Date/Time Associated Diagnosis Comments DIFFERENTIAL AUTO STAT 05/03/2025 10:36 AM CDT Neuroendocrine cancer (HCC) EGFR STAT 05/03/2025 10:36 AM CDT Neuroendocrine cancer (HCC) CBC WITH AUTO DIFFERENTIAL STAT 05/03/2025 10:36 AM CDT Neuroendocrine cancer (HCC) COMPREHENSIVE METABOLIC PANEL STAT 05/03/2025 10:36 AM CDT Neuroendocrine cancer (HCC) SEROTONIN Routine 05/03/2025 10:36 AM CDT Neuroendocrine cancer (HCC) CHROMOGRANIN A Routine 05/03/2025 10:26 AM CDT Neuroendocrine cancer (HCC) EGFR STAT 04/05/2025 8:41 AM CDT Neuroendocrine cancer (HCC) DIFFERENTIAL AUTO STAT 04/05/2025 8:4 1 AM CDT Neuroendocrine cancer (HCC) LIPID PANEL Routine 04/05/2025 8:41 AM CDT Primary hypertension Neuroendocrine cancer (HCC) Bradycardia Coronary artery calcification seen on CAT scan Mixed hyperlipidemia High risk medication use CBC WITH AUTO DIFFERENTIAL STAT 04/05/2025 8:41 AM CDT Neuroendocrine cancer (HCC) COMPREHENSIVE METABOLIC PANEL STAT 04/05/2025 8:41 AM CDT Neuroendocrine cancer (HCC) CHROMOGRANIN A Routine 04/05/2025 8:41 AM CDT Neuroendocrine cancer (HCC) SEROTONIN Routine 04/05/2025 8:41 AM CDT Neuroendocrine cancer (HCC) PET/CT GA-68 DOTATATE SKULL TO THIGH Schedule Routine, Read Routine (OP Routine) 03/31/2025 2:17 PM CDT Neuroendocrine cancer (HCC) EGFR STAT 03/08/2025 7:29 AM CDT Neuroendocrine cancer (HCC) DIFFERENTIAL AUTO STAT 03/08/2025 7:2 9 AM CDT Neuroendocrine cancer (HCC) CBC WITH AUTO DIFFERENTIAL STAT 03/08/2025 7:29 AM CDT Neuroendocrine cancer (HCC) COMPREHENSIVE METABOLIC PANEL STAT 03/08/2025 7:29 AM CDT Neuroendocrine cancer (HCC) CHROMOGRANIN A Routine 03/08/2025 7:29 AM CDT Neuroendocrine cancer (HCC) SEROTONIN Routine 03/08/2025 7:29 AM CDT Neuroendocrine cancer (HCC) CT CHEST ABDOMEN PELVIS W CONTRAST Schedule Routine, Read Routine (OP Routine) 02/03/2025 10:09 AM CDT Neuroendocrine cancer (HCC) POCT HEMOGLOBIN A1C Routine 01/19/2025 9 :59 AM CDT Type 2 diabetes mellitus with hyperglycemia, without long-term current use of insulin (HCC) from Last 3 Months or Most Recently Relevant to Health Maintenance Results * (ABNORMAL) eGFR (05/03/2025 10:36 AM CDT) eGFR 48(L) >=60 mL/min/1. 73 m2 Comment: Interpretive Data Reference Interval Normal >/= 90 mL/min/1.73m2 Mildly decreased* 60 - 89 mL/min/1.73m2 Mildly to moderately decreased 45 - 59 mL/min/1.73m2 Moderately to severely decreased 30 - 44 mL/min/1.73m2 Severely decreased 15 - 29 mL/min/1.73m2 Kidney Failure < 15 mL/min/1.73m2 *Relative to young adult level Estimated glomerular filtration rate is determined by the 2020 CKD-EPI equation recommended by the National Kidney Foundation (A Unifying Approach to GFR Estimation: Recommendations of the NKF-ASK Task Force on Reassessing the Inclusion of Race in Diagnosing Kidney Disease, JASN 202). The CKD-EPI equation should not be used for patients with unstable renal function and has not been validated in children and those over 70. Current interpretive data was last reviewed 2021. Blood 05/03/2025 10:3 6 AM CDT 05/03/2025 10:48 AM CDT us Wnada Portillo PASTORAL WORKER LAB BLOOD ORDERABLES Malena napoles Result [facility] Department [place] [address] * Differential, auto (05/03/2025 10:36 AM CDT) Neutrophil abs 3.78 1.50 - 6.50 K/cumm Comment:Testing performed by : [facility], [address] [place] [phone] Lymphocyte abs 1.19 0.80 - 3.30 K/cumm BOBBI SCHWARTZ Comment:Testing performed by : [facility], [address] [place], [place] [phone] Monocyte abs 0.51 0.20 - 0.80 K/cumm BOBBI SCHWARTZ Comment:Testing performed by : [facility], [address] [place], [place] [phone] Eosinophil abs 0.08 0.00 - 0.50 K/cumm BOBBI SCHWARTZ Comment:Testing performed by : [facility], [address] [place], [place] [phone] Basophil abs 0.02 0.00 - 0.10 K/cumm BOBBI SCHWARTZ Comment:Testing performed by : [facility], [address] [place] [phone] Neutrophil pct 67.9 % CERKP SCHWARTZ Comment: Interpretive Data Percent cell count reference ranges are not reported, since discordance with absolute values may lead to misinterpretation of CBC data. Current Interpretive Data was last revised on 2017. Testing performed by: [facility], [address] [place] [phone] Lymphocyte pct 21.3 % [facility]ERNER [facility] Comment: Interpretive Data Percent cell count reference ranges are not reported, since discordance with absolute values may lead to misinterpretation of CBC data. Current Interpretive Data was last revised on 2017. Testing performed by: [facility], [address] [place], [place] [phone] Monocyte pct 9.1 % BOBBI SCHWARTZ Comment: Interpretive Data Percent cell count reference ranges are not reported, since discordance with absolute values may lead to misinterpretation of CBC data. Current Interpretive Data was last revised on 2017. Testing performed by: [facility], [address] [place] [phone] Eosinophil pct 1.4 % BOBBI SCHWARTZ Comment: Interpretive Data Percent cell count reference ranges are not reported, since discordance with absolute values may lead to misinterpretation of CBC data. Current Interpretive Data was last revised on 2017. Testing performed by: [facility], [address] [place] [phone] Basophil pct 0.4 % [facility] SCHWARTZ Comment: Interpretive Data Percent cell count reference ranges are not reported, since discordance with absolute values may lead to misinterpretation of CBC data. Current Interpretive Data was last revised on 2017. Testing performed by: [facility], [address] [place] [phone] Blood 05/03/2025 10:3 6 AM CDT 05/03/2025 11:44 AM CDT Wanda Portillo PASTORAL WORKER LAB BLOOD ORDERABLES Malena l Result [facility] Department [place] [address] * (ABNORMAL) CBC with auto differential (05/03/2025 10:36 AM CDT) WBC 5.57 3.80 - 9.90 K/cumm Comment:Testing performed by : [facility], [address] [place] [phone] Hgb 12.5(L) 13.0 - 17.5 g/dL BOBBI SCHWARTZ Comment:Testing performed by : [facility], [address] [place] [address] Hct 36.9(L) 38.9 - 50.3 % BOBBI FERGUSON Comment:Testing performed by : [facility], [address] [place], [place] [phone] Plt 188 150 - 400 K/cumm CERKP BJ Comment:Testing performed by : [facility], [address] [place], [place] [phone] MPV 8.6 6.8 - 10.4 fL [facility]J Comment:Testing performed by : [facility], [address] [place], [place] [phone] RBC 4.24(L) 4.30 - 5.80 M/cumm [facility]ERKP BJ Comment:Testing performed by : [facility], [address] [place], [place] [phone] MCV 86.8 81.3 - 96.4 fL [facility] Comment:Testing performed by : [facility], [address] [place], [place] [phone] MCH 29.5 27.1 - 33.3 pg [facility] Comment:Testing performed by : [facility], [address] [place] [address] MCHC 34.0 32.3 - 35.7 g/dL [facility] Comment:Testing performed by : [facility], [address] [place] [address] RDW CV 15.0(H) 11.1 - 14.9 % [facility]J Comment:Testing performed by : [facility], [address] [place] [address] NRBC abs 0.00 0.00 - 0.01 K/cumm CERKP BJ Comment:Testing performed by : [facility], [address] [place] [address] Blood 05/03/2025 10:3 6 AM CDT 05/03/2025 11:44 AM CDT Wanda Portillo PASTORAL WORKER LAB BLOOD ORDERABLES Malena l Result [facility] Department [place] [address] * Serotonin serum (05/03/2025 10:36 AM CDT) Pathologist [facility] Serotonin 68 <=230 ng/mL [facility] Comment: ADDITIONAL INFORMATION This test was developed and its performance characteristics determined by [facility] in a manner consistent with CLIA requirements. This test has not been cleared or approved by the U.S. Food and Drug Administration. Test Performed by: [facility] [address] [place] [address] Sponge Buffer: Swathi Malaogn Ph.D.; CLIA# [id number] Blood 05/03/2025 10:3 6 AM CDT 05/03/2025 12:40 PM CDT Wanda Portillo PASTORAL WORKER LAB BLOOD ORDERABLES Malena napoles Result [facility] Department [place] [address] [facility] * (ABNORMAL) Comprehensive metabolic panel (05/03/2025 10:36 AM CDT) [facility] Sodium 143 135 - 145 mmol/L Potassium, pl 4.5 3.3 - 4.9 mmol/L [facility] Chloride 103 97 - 110 mmol/L [facility] CO2 28 22 - 32 mmol/L [facility] Anion gap 12 2 - 15 mmol/L [facility] BUN 32(H) 6 - 25 mg/dL [facility] Creatinine 1.52(H) 0.80 - 1.30 mg/dL [facility] Glucose 84 70 - 199 mg/dL [facility] Comment: Interpretive Data Fasting glucose >/= 126 mg/dl is diagnostic for diabetes. Fasting is defined as no caloric intake for at least 8 hours. Fasting glucose between 100 mg/dl to 125 mg/dl is diagnostic of prediabetes. In a patient with classic symptoms of hyperglycemia or hyperglycemic crisis, a random glucose >/= 200 mg/dl is diagnostic for diabetes. In the absence of unequivocal hyperglycemia, results should be confirmed by repeat testing. The classification and Diagnosis of Diabetes Diabetes Care 2021; 46: S19-S40. Current interpretive data was last revised 2022. Calcium 10.1 8.5 - 10.3 mg/dL [facility] Bilirubin, total 0.5 0.1 - 1.2 mg/dL [facility] Protein, pl 7.7 6.5 - 8.5 g/dL [facility] Albumin 4.6 3.5 - 5.0 g/dL [facility] Alk phos 26(L) 40 - 130 Units/L [facility] ALT 31 7 - 55 Units/L [facility] AST 42 10 - 50 Units/L [facility] Blood 05/03/2025 10:3 6 AM CDT 05/03/2025 10:48 AM CDT Wanda Portillo PASTORAL WORKER LAB BLOOD ORDERABLES Malena yesika Result [facility] Department [place] [address] * Chromogranin A (05/03/2025 10:26 AM CDT) Chromogranin A 81 <93 ng/mL [facility] Comment: ADDITIONAL INFORMATION The testing method is a homogeneous time-resolved immunofluorescent assay manufactured by [employer] and performed on the [employer] Kryptor Compact Plus. Values obtained with different assay methods or kits may be different and cannot be used interchangeably. Test results cannot be interpreted as absolute evidence for the presence or absence of malignant disease. In some immunoassays, the presence of unusually high concentrations of analyte may result in a high-dose hook effect. This may result in a lower or even normal measured analyte concentration. If the reported result is inconsistent with the clinical presentation, the laboratory should be alerted for troubleshooting. For diagnostic purposes, these immunoassay results should always be assessed in conjunction with the patients medical history, clinical examination and other findings. Test Performed by: [facility] [address] [place] [address] Sponge Buffer: Swathi Malagon Ph.D.; CLIA# [id number] Blood 05/03/2025 10:2 6 AM CDT 05/03/2025 2:02 PM CDT us Wanda Portillo NP LAB BLOOD ORDERABLES Malena l Result Performing Organization Address City/[facility]/ZIP Co de Phone Number [facility] Department [place] [address] [facility] * (ABNORMAL) eGFR (04/05/2025 8:41 AM CDT) eGFR 44(L) >=60 mL/min/1. 73 m2 Comment: Interpretive Data Reference Interval Normal >/= 90 mL/min/1.73m2 Mildly decreased* 60 - 89 mL/min/1.73m2 Mildly to moderately decreased 45 - 59 mL/min/1.73m2 Moderately to severely decreased 30 - 44 mL/min/1.73m2 Severely decreased 15 - 29 mL/min/1.73m2 Kidney Failure < 15 mL/min/1.73m2 *Relative to young adult level Estimated glomerular filtration rate is determined by the 2020 CKD-EPI equation recommended by the National Kidney Foundation (A Unifying Approach to GFR Estimation: Recommendations of the NKF-ASK Task Force on Reassessing the Inclusion of Race in Diagnosing Kidney Disease, JASN 2020). The CKD-EPI equation should not be used for patients with unstable renal function and has not been validated in children and those over 70. Current interpretive data was last reviewed 2021. Blood 04/05/2025 8:41 AM CDT 04/05/2025 8:46 AM CDT us Monico Bryant MD LAB BLOOD ORDERABLES Malena l Result [facility] [place] [address] * Differential, auto (04/05/2025 8:41 AM CDT) Neutrophil abs 3.29 1.50 - 6.50 K/cumm Comment:Testing performed by : [facility], [address] [place] [phone] Lymphocyte abs 1.17 0.80 - 3.30 K/cumm C[facility] BJ Comment:Testing performed by : [facility], [address] [place], [place] [phone] Monocyte abs 0.52 0.20 - 0.80 K/cumm [facility]ER BJ Comment:Testing performed by : [facility], [address] [place] [phone] Eosinophil abs 0.13 0.00 - 0.50 K/cumm [facility] Comment:Testing performed by : [facility], [address] [place] [phone] Basophil abs 0.03 0.00 - 0.10 K/cumm [facility] Comment:Testing performed by : [facility], [address] [place] [phone] Neutrophil pct 64.1 % [facility] Comment: Interpretive Data Percent cell count reference ranges are not reported, since discordance with absolute values may lead to misinterpretation of CBC data. Current Interpretive Data was last revised on 2017. Testing performed by: [facility], [address] [place] [phone] Lymphocyte pct 22.7 % [facility] Comment: Interpretive Data Percent cell count reference ranges are not reported, since discordance with absolute values may lead to misinterpretation of CBC data. Current Interpretive Data was last revised on 2017. Testing performed by: [facility], [address] [place] [phone] Monocyte pct 10.0 % [facility] Comment: Interpretive Data Percent cell count reference ranges are not reported, since discordance with absolute values may lead to misinterpretation of CBC data. Current Interpretive Data was last revised on 2017. Testing performed by: [facility], [address] [place] [phone] Eosinophil pct 2.6 % [facility] Comment: Interpretive Data Percent cell count reference ranges are not reported, since discordance with absolute values may lead to misinterpretation of CBC data. Current Interpretive Data was last revised on 2017. Testing performed by: [facility], [address] [place] [phone] Basophil pct 0.6 % [facility] Comment: Interpretive Data Percent cell count reference ranges are not reported, since discordance with absolute values may lead to misinterpretation of CBC data. Current Interpretive Data was last revised on 2017. Testing performed by: [facility], [address] [place] [phone] Blood 04/05/2025 8:41 AM CDT 04/05/2025 8:45 AM CDT us Monico Bryant MD LAB BLOOD ORDERABLES Malena napoles Result [facility] Department [place] [address] * Chromogranin A (04/05/2025 8:41 AM CDT) Chromogranin A 76 <93 ng/mL [facility] Comment: ADDITIONAL INFORMATION The testing method is a homogeneous time-resolved immunofluorescent assay manufactured by [employer] and performed on the [employer] KrCurious Senseor Compact Plus. Values obtained with different assay methods or kits may be different and cannot be used interchangeably. Test results cannot be interpreted as absolute evidence for the presence or absence of malignant disease. In some immunoassays, the presence of unusually high concentrations of analyte may result in a high-dose hook effect. This may result in a lower or even normal measured analyte concentration. If the reported result is inconsistent with the clinical presentation, the laboratory should be alerted for troubleshooting. For diagnostic purposes, these immunoassay results should always be assessed in conjunction with the patients medical history, clinical examination and other findings. Test Performed by: [facility] [address] [place] [address] Sponge Buffer: Swathi Malagon Ph.D.; CLIA# [id number] Blood 04/05/2025 8:41 AM CDT 04/05/2025 10:06 AM CDT us Monico Bryant MD LAB BLOOD ORDERABLES Malena napoles Result [facility] [place] [address] [facility] * (ABNORMAL) CBC with auto differential (04/05/2025 8:41 AM CDT) WBC 5.13 3.80 - 9.90 K/cumm Comment:Testing performed by : [facility], [address] [place] [phone] Hgb 12.9(L) 13.0 - 17.5 g/dL [facility] Comment:Testing performed by : [facility], [address] [place] [address] Hct 37.4(L) 38.9 - 50.3 % [facility] Comment:Testing performed by : [facility], [address] [place] [phone] Plt 199 150 - 400 K/cumm [facility] Comment:Testing performed by : [facility], [address] [place] [address] MPV 7.4 6.8 - 10.4 fL [facility] Comment:Testing performed by : [facility], [address] [place] [address] RBC 4.40 4.30 - 5.80 M/cumm [facility] Comment:Testing performed by : [facility], [address] [place] [address] MCV 85.1 81.3 - 96.4 fL [facility] Comment:Testing performed by : [facility], [address] [place] [address] MCH 29.2 27.1 - 33.3 pg [facility] Comment:Testing performed by : [facility], [address] [place] [address] MCHC 34.4 32.3 - 35.7 g/dL [facility] Comment:Testing performed by : [facility], [address] [place] [address] RDW CV 14.7 11.1 - 14.9 % [facility] Comment:Testing performed by : [facility], [address] [place] [address] NRBC abs 0.00 0.00 - 0.01 K/cumm [facility] Comment:Testing performed by : [facility], [address] [place] [address] Blood 04/05/2025 8:41 AM CDT 04/05/2025 8:45 AM CDT Monico Bryant MD LAB BLOOD ORDERABLES Malena napoles Result [facility] Department [place] [address] * Serotonin serum (04/05/2025 8:41 AM CDT) Serotonin 84 <=230 ng/mL [facility] Comment: ADDITIONAL INFORMATION This test was developed and its performance characteristics determined by [facility] in a manner consistent with CLIA requirements. This test has not been cleared or approved by the U.S. Food and Drug Administration. Test Performed by: [facility] [address] [place] [id number] Sponge Buffer: Swathi Malagon Ph.D.; CLIA# [id number] Blood 04/05/2025 8:41 AM CDT 04/05/2025 10:25 AM CDT us Monico Bryant MD LAB BLOOD ORDERABLES Malena l Result [facility] Department [place] [address] [facility] * Lipid panel (04/05/2025 8:41 AM CDT) Cholesterol 124 30 - 199 mg/dL Comment: Interpretive Data Ages < or = 19 years Acceptable: <170 mg/dL Borderline high: 170-199 mg/dL High: >or= 200 mg/dL Ages > or = 20 years Desirable: <200 mg/dL Borderline high: 200-239 mg/dL High: >or= 240 mg/dL Literature References: 1. Expert Panel on Integrated Guidelines for Cardiovascular Health and Risk Reduction in Children and Adolescents. Pediatrics 2011;128:S213 2. NCEP Expert Panel. Circulation 2004;110:227 Current Interpretive Data was last revised on 2018. Triglycerides 139 <=149 mg/dL [facility] Comment: Interpretive Data Ages < or = 9 years Acceptable: <75 mg/dL Borderline high: 75-99 mg/dL High: >or= 100 mg/dL Ages 10 to 20 years Acceptable: <90 mg/dL Borderline high: 90-129 mg/dL High: >or= 130 mg/dL Ages > or = 20 years Desirable: <150 mg/dL Borderline high: 150-199 mg/dL High: 200-499 mg/dL Very high: >or= 499 mg/dL Literature References: 1. Expert Panel on Integrated Guidelines for Cardiovascular Health and Risk Reduction in Children and Adolescents. Pediatrics 2011;128:S213 2. NCEP Expert Panel. Circulation 2004;110:227 Current Interpretive Data was last revised on 2018. HDL 44 >=40 mg/dL [facility] Comment: Interpretive Data Ages < or = 19 years Acceptable: >45 mg/dL Borderline low: 40-45 mg/dL Low: <40 mg/dL Ages > or = 20 years Desirable: >or= 60 mg/dL Low: <40 mg/dL Literature References: 1. Expert Panel on Integrated Guidelines for Cardiovascular Health and Risk Reduction in Children and Adolescents. Pediatrics 2011;128:S213 2. NCEP Expert Panel. Circulation 2004;110:227 Current Interpretive Data was last revised on 2018. LDL, calculated 56 <=129 mg/dL [facility] Comment: Interpretive Data Ages < or = 19 years Acceptable: <110 mg/dL Borderline high: 110-129 mg/dL High: >or= 130 mg/dL Ages > or = 20 years Optimal: <100 mg/dL Near optimal: 100-129 mg/dL Borderline high: 130-159 mg/dL High: >160 mg/dL Calculated using the Hamilton LDL-C estimating equation. This equation was implemented on 2024. Prior to this date LDL-C was estimated using the Friedewald equation. Literature References: 1. Expert Panel on Integrated Guidelines for Cardiovascular Health and Risk Reduction in Children and Adolescents. Pediatrics 2011;128:S213 2. NCEP Expert Panel. Circulation 2004;110:227 3. Hamilton Foley al. MAJO Cardiol. 2019December 23;5(5):540-548. doi: 10.1001/[email or web address].2020.0013 Current Interpretive Data was last revised on 2024. Non-HDL Cholesterol 80 mg/dL [facility] Comment: Interpretive Data Ages < or = 19 years Acceptable: <120 mg/dL Borderline high: 120-144 mg/dL High: >145 mg/dL Ages > or = 20 years When triglycerides are >200 mg/dL, Non-HDL cholesterol is a secondary target of therapy with treatment goals that are 30 mg/dL greater than the LDL cholesterol target. Literature References: 1. Expert Panel on Integrated Guidelines for Cardiovascular Health and Risk Reduction in Children and Adolescents. Pediatrics 2011;128:S213 2. NCEP Expert Panel. Circulation 2004;110:227 Current Interpretive Data was last revised on 2018. Chol/HDL ratio 3 [facility] Blood 04/05/2025 8:41 AM CDT 04/05/2025 8:46 AM CDT Lindsay Montilla NP LAB BLOOD ORDERABLES Final Resul t [facility] [place] [address] * (ABNORMAL) Comprehensive metabolic panel (04/05/2025 8:41 AM CDT) Sodium 139 135 - 145 mmol/L Potassium, pl 4.3 3.3 - 4.9 mmol/L [facility] Chloride 101 97 - 110 mmol/L [facility] CO2 28 22 - 32 mmol/L [facility] Anion gap 10 2 - 15 mmol/L [facility] BUN 43(H) 6 - 25 mg/dL [facility] Creatinine 1.64(H) 0.80 - 1.30 mg/dL [facility] Glucose 109 70 - 199 mg/dL [facility] Comment: Interpretive Data Fasting glucose >/= 126 mg/dl is diagnostic for diabetes. Fasting is defined as no caloric intake for at least 8 hours. Fasting glucose between 100 mg/dl to 125 mg/dl is diagnostic of prediabetes. In a patient with classic symptoms of hyperglycemia or hyperglycemic crisis, a random glucose >/= 200 mg/dl is diagnostic for diabetes. In the absence of unequivocal hyperglycemia, results should be confirmed by repeat testing. The classification and Diagnosis of Diabetes Diabetes Care 202; 46: S19-S40. Current interpretive data was last revised 2022. Calcium 9.9 8.5 - 10.3 mg/dL [facility] Bilirubin, total 0.5 0.1 - 1.2 mg/dL [facility] Protein, pl 7.6 6.5 - 8.5 g/dL [facility] Albumin 4.5 3.5 - 5.0 g/dL [facility] Alk phos 28(L) 40 - 130 Units/L [facility] ALT 20 7 - 55 Units/L [facility] AST 30 10 - 50 Units/L [facility] Blood 04/05/2025 8:41 AM CDT 04/05/2025 8:46 AM CDT Monico Bryant MD LAB BLOOD ORDERABLES Malena yesika Result [facility] Department [place] [address] * PET/CT Dotatate Skull to Thigh (03/31/2025 2:17 PM CDT) Anatomical Region Laterality Modality Positron Emissio n Tomography (PET) 03/31/2025 5:11 PM CDT Impressions 03/31/2025 5:27 PM CDT Allowing for technical differences, 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 Modified Krenning score = 4 Dictated by: Phuc Jacobs MD The radiology attending physician has personally reviewed this study, and had reviewed and/or edited this written report and agrees with it. Electronically signed by: Emil Hopkins M.D. Narrative 03/31/2025 5:27 PM CDT EXAMINATION: Cu-64 DOTATATE -PET/CT IMAGING DATE OF STUDY: 03/31/2025 SCANNER: [facility] Raizlabsa (SQ1). This is a high-resolution scanner, which can result in higher SUVs (and even detection of previously unrecognized small lesions) compared to older scanners. RADIOPHARMACEUTICAL: 4.5 mCi Cu-64 Dotatate i.v. 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 Ki-67 was 1.71%. PET/CT from 12/24/2023 showed widespread metastatic disease. Patient has been on lanreotide since 01/27/2024. CT chest abdomen pelvis on 02/03/2025 showed right lower lobe quadrant soft tissue mass increased in size. The study is requested for treatment monitoring during therapy. Subsequent treatment strategy. TECHNIQUE: After intravenous administration of the radiopharmaceutical, noncontrast CT images were obtained for attenuation correction and for fusion with emission PET images to allow for anatomical localization of PET findings. Emission PET images were then obtained. The study was interpreted on the [employer] workstation. The total scanned area was skull vertex to proximal thighs. Images of the body were obtained starting 69 minutes after injection of tracer. REFERENCE TISSUE MAXIMUM SUVs: Liver 7.8 Spleen 14 Focal dotatate tracer uptake (visually classified on MIP images) in reference lesions on PET is graded as follows (Modified Krenning Score): 0. No uptake (Negative) 1. Uptake < liver (Minimal) 2. Uptake = liver (Mild) 3. Uptake > liver, but < spleen (Moderate) 4. Uptake > spleen (Intense) COMPARISON: Cu-64 DOTATATE -PET/CT 12/24/2023 FINDINGS: Prior PET scan was of higher noise (due to scanner sensitivity differences) limiting comparison between the 2 scans, especially for hepatic lesions. There is intensely tracer-avid mass with calcification at the ileocecal junction (axial image 213, SUV 32.4). There is focal uptake in ileal loop on axial image 202 which may represent another site of primary neuroendocrine neoplasm. There are multiple intensely tracer avid hepatic lesions in both the lobes. For example, segment 8 hepatic lesion at the dome with SUV of 37.7. There are intensely tracer avid peritoneal nodules. For example, in the pelvis on axial image 259, and 271, as well as anterior to the left lobe of liver on axial image 163 with misregistered activity. There is intensely tracer avid lesion in the right scapula (axial image 126), and moderately tracer avid lesion in the posterior aspect of right 3rd rib (axial image 108). There is a focus of moderate tracer uptake near the anterior margin of aortic root on axial image 147, unchanged from prior study. Additional CT findings: Coronary and aortic atherosclerosis. Degenerative spine disease. Colonic diverticulosis. Procedure Note Emil Hopkins MD - 03/31/2025 EXAMINATION: Cu-64 DOTATATE -PET/CT IMAGING DATE OF STUDY: 03/31/2025 SCANNER: [facility] e-SENS (SQ1). This is a high-resolution scanner, which can result in higher SUVs (and even detection of previously unrecognized small lesions) compared to older scanners. RADIOPHARMACEUTICAL: 4.5 mCi Cu-64 Dotatate i.v. 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 Ki-67 was 1.71%. PET/CT from 12/24/2023 showed widespread metastatic disease. Patient has been on lanreotide since 01/27/2024. CT chest abdomen pelvis on 02/03/2025 showed right lower lobe quadrant soft tissue mass increased in size. The study is requested for treatment monitoring during therapy. Subsequent treatment strategy. TECHNIQUE: After intravenous administration of the radiopharmaceutical, noncontrast CT images were obtained for attenuation correction and for fusion with emission PET images to allow for anatomical localization of PET findings. Emission PET images were then obtained. The study was interpreted on the [employer] workstation. The total scanned area was skull vertex to proximal thighs. Images of the body were obtained starting 69 minutes after injection of tracer. REFERENCE TISSUE MAXIMUM SUVs: Liver 7.8 Spleen 14 Focal dotatate tracer uptake (visually classified on MIP images) in reference lesions on PET is graded as follows (Modified Krenning Score): 0. No uptake (Negative) 1. Uptake < liver (Minimal) 2. Uptake = liver (Mild) 3. Uptake > liver, but < spleen (Moderate) 4. Uptake > spleen (Intense) COMPARISON: Cu-64 DOTATATE -PET/CT 12/24/2023 FINDINGS: Prior PET scan was of higher noise (due to scanner sensitivity differences) limiting comparison between the 2 scans, especially for hepatic lesions. There is intensely tracer-avid mass with calcification at the ileocecal junction (axial image 213, SUV 32.4). There is focal uptake in ileal loop on axial image 202 which may represent another site of primary neuroendocrine neoplasm. There are multiple intensely tracer avid hepatic lesions in both the lobes. For example, segment 8 hepatic lesion at the dome with SUV of 37.7. There are intensely tracer avid peritoneal nodules. For example, in the pelvis on axial image 259, and 271, as well as anterior to the left lobe of liver on axial image 163 with misregistered activity. There is intensely tracer avid lesion in the right scapula (axial image 126), and moderately tracer avid lesion in the posterior aspect of right 3rd rib (axial image 108). There is a focus of moderate tracer uptake near the anterior margin of aortic root on axial image 147, unchanged from prior study. Additional CT findings: Coronary and aortic atherosclerosis. Degenerative spine disease. Colonic diverticulosis. 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 Modified Krenning score = 4 Dictated by: Phuc Jacobs MD The radiology attending physician has personally reviewed this study, and had reviewed and/or edited this written report and agrees with it. Electronically signed by: Emil Hopkins M.D. us Monico Bryant MD IMG PET PROCEDURES Final Result * (ABNORMAL) eGFR (03/08/2025 7:29 AM CDT) Pathologist [facility] eGFR 34(L) >=60 mL/min/1. 73 m2 Comment: Interpretive Data Reference Interval Normal >/= 90 mL/min/1.73m2 Mildly decreased* 60 - 89 mL/min/1.73m2 Mildly to moderately decreased 45 - 59 mL/min/1.73m2 Moderately to severely decreased 30 - 44 mL/min/1.73m2 Severely decreased 15 - 29 mL/min/1.73m2 Kidney Failure < 15 mL/min/1.73m2 *Relative to young adult level Estimated glomerular filtration rate is determined by the 2020 CKD-EPI equation recommended by the National Kidney Foundation (A Unifying Approach to GFR Estimation: Recommendations of the NKF-ASK Task Force on Reassessing the Inclusion of Race in Diagnosing Kidney Disease, JASN 2020). The CKD-EPI equation should not be used for patients with unstable renal function and has not been validated in children and those over 70. Current interpretive data was last reviewed 2021. Blood 03/08/2025 7:29 AM CDT 03/08/2025 7:35 AM CDT us Monico Bryant MD LAB BLOOD ORDERABLES Malena l Result [facility] Department [place] [address] * Differential, auto (03/08/2025 7:29 AM CDT) Neutrophil abs 4.85 1.50 - 6.50 K/cumm Comment:Testing performed by : [facility], [address] [place] [phone] Lymphocyte abs 1.38 0.80 - 3.30 K/cumm [facility] Comment:Testing performed by : [facility], [address] [place] [phone] Monocyte abs 0.69 0.20 - 0.80 K/cumm [facility] Comment:Testing performed by : [facility], [address] [place] [address] Eosinophil abs 0.08 0.00 - 0.50 K/cumm [facility] Comment:Testing performed by : [facility], [address] [place] [phone] Basophil abs 0.04 0.00 - 0.10 K/cumm [facility] Comment:Testing performed by : [facility], [address] [place], [place] [phone] Neutrophil pct 69.0 % [facility] Comment: Interpretive Data Percent cell count reference ranges are not reported, since discordance with absolute values may lead to misinterpretation of CBC data. Current Interpretive Data was last revised on 2017. Testing performed by: [facility], [address] [place] [phone] Lymphocyte pct 19.6 % [facility] Comment: Interpretive Data Percent cell count reference ranges are not reported, since discordance with absolute values may lead to misinterpretation of CBC data. Current Interpretive Data was last revised on 2017. Testing performed by: [facility], [address] [place] [phone] Monocyte pct 9.8 % [facility] Comment: Interpretive Data Percent cell count reference ranges are not reported, since discordance with absolute values may lead to misinterpretation of CBC data. Current Interpretive Data was last revised on 2017. Testing performed by: [facility], [address] [place] [phone] Eosinophil pct 1.2 % [facility] Comment: Interpretive Data Percent cell count reference ranges are not reported, since discordance with absolute values may lead to misinterpretation of CBC data. Current Interpretive Data was last revised on 2017. Testing performed by: [facility], [facility] [place] [address] Basophil pct 0.5 % [facility] Comment: Interpretive Data Percent cell count reference ranges are not reported, since discordance with absolute values may lead to misinterpretation of CBC data. Current Interpretive Data was last revised on 2017. Testing performed by: [facility], [facility] [place] [address] Blood 03/08/2025 7:29 AM CDT 03/08/2025 7:31 AM CDT us Monico Bryant MD LAB BLOOD ORDERABLES Malena yesika Result [facility] [place] [address] * Chromogranin A (03/08/2025 7:29 AM CDT) Chromogranin A 80 <93 ng/mL [facility] Comment: ADDITIONAL INFORMATION The testing method is a homogeneous time-resolved immunofluorescent assay manufactured by [employer] and performed on the [employer] Kryptor Compact Plus. Values obtained with different assay methods or kits may be different and cannot be used interchangeably. Test results cannot be interpreted as absolute evidence for the presence or absence of malignant disease. In some immunoassays, the presence of unusually high concentrations of analyte may result in a high-dose hook effect. This may result in a lower or even normal measured analyte concentration. If the reported result is inconsistent with the clinical presentation, the laboratory should be alerted for troubleshooting. For diagnostic purposes, these immunoassay results should always be assessed in conjunction with the patients medical history, clinical examination and other findings. Test Performed by: [address] [address] Sponge Buffer: Swathi Malagon Ph.D.; CLIA# [id number] Blood 03/08/2025 7:29 AM CDT 03/08/2025 9:42 AM CDT Monico Bryant MD LAB BLOOD ORDERABLES Malena yesika Result [facility] [place] [address] [facility] * (ABNORMAL) CBC with auto differential (03/08/2025 7:29 AM CDT) WBC 7.04 3.80 - 9.90 K/cumm Comment:Testing performed by : [facility], [address] [place] [address] Hgb 12.5(L) 13.0 - 17.5 g/dL [facility] Comment:Testing performed by : [facility], [address] [place] [address] Hct 36.8(L) 38.9 - 50.3 % [facility] Comment:Testing performed by : [facility], [address] [place] [address] Plt 183 150 - 400 K/cumm [facility] Comment:Testing performed by : [facility], [address] [place] [address] MPV 8.2 6.8 - 10.4 fL [facility] Comment:Testing performed by : [facility], [address] [place] [address] RBC 4.33 4.30 - 5.80 M/cumm [facility] Comment:Testing performed by : [facility], [address] [place] [address] MCV 85.1 81.3 - 96.4 fL [facility] Comment:Testing performed by : [facility] [facility], [address] [place] [address] MCH 28.8 27.1 - 33.3 pg [facility] Comment:Testing performed by : [facility], [address] [place] [address] MCHC 33.9 32.3 - 35.7 g/dL [facility] Comment:Testing performed by : [facility], [address] [place] [id number] RDW CV 14.5 11.1 - 14.9 % [facility] Comment:Testing performed by : [facility], [address] [place] [address] NRBC abs 0.00 0.00 - 0.01 K/cumm [facility] Comment:Testing performed by : [facility], [address] [place] [address] Blood 03/08/2025 7:29 AM CDT 03/08/2025 7:31 AM CDT us Monico Bryant MD LAB BLOOD ORDERABLES Malena l Result Performing Organization Address [facility] Co de Phone Number [facility] Department [place] [address] * Serotonin serum (03/08/2025 7:29 AM CDT) Serotonin 41 <=230 ng/mL [facility] Comment: ADDITIONAL INFORMATION This test was developed and its performance characteristics determined by [facility] in a manner consistent with CLIA requirements. This test has not been cleared or approved by the U.S. Food and Drug Administration. Test Performed by: [facility] - [id number] [place] [address] Sponge Buffer: Swathi Malagon Ph.D.; CLIA# [id number] Blood 03/08/2025 7:29 AM CDT 03/08/2025 9:44 AM CDT us Monico Bryant MD LAB BLOOD ORDERABLES Malena l Result Performing Organization Address City/[facility]/ZIP Co de Phone Number [facility] Department [place] [address] [facility] * (ABNORMAL) Comprehensive metabolic panel (03/08/2025 7:29 AM CDT) Sodium 139 135 - 145 mmol/L Potassium, pl 4.2 3.3 - 4.9 mmol/L [facility] Chloride 101 97 - 110 mmol/L [facility] CO2 28 22 - 32 mmol/L [facility] Anion gap 10 2 - 15 mmol/L [facility] BUN 47(H) 6 - 25 mg/dL [facility] Creatinine 2.02(H) 0.80 - 1.30 mg/dL [facility] Glucose 170 70 - 199 mg/dL [facility] Comment: Interpretive Data Fasting glucose >/= 126 mg/dl is diagnostic for diabetes. Fasting is defined as no caloric intake for at least 8 hours. Fasting glucose between 100 mg/dl to 125 mg/dl is diagnostic of prediabetes. In a patient with classic symptoms of hyperglycemia or hyperglycemic crisis, a random glucose >/= 200 mg/dl is diagnostic for diabetes. In the absence of unequivocal hyperglycemia, results should be confirmed by repeat testing. The classification and Diagnosis of Diabetes Diabetes Care 202; 46: S19-S40. Current interpretive data was last revised 2022. Calcium 10.2 8.5 - 10.3 mg/dL [facility] Bilirubin, total 0.3 0.1 - 1.2 mg/dL [facility] Protein, pl 7.4 6.5 - 8.5 g/dL [facility] Albumin 4.4 3.5 - 5.0 g/dL [facility] Alk phos 27(L) 40 - 130 Units/L [facility] ALT 16 7 - 55 Units/L [facility] AST 30 10 - 50 Units/L [facility] Blood 03/08/2025 7:29 AM CDT 03/08/2025 7:35 AM CDT us Monico Bryant MD LAB BLOOD ORDERABLES Malena l Result [facility] [place] [address] * CT Chest Abdomen Pelvis W Contrast (02/03/2025 10:09 AM CDT) Anatomical Region Laterality Modality Body N/A Computed Tomogra phy 02/03/2025 11:1 1 AM CDT Impressions 02/03/2025 11:25 AM CDT 1. Interval increase in size of a tethering soft tissue mass in the right lower quadrant with adjacent calcification compatible with neuroendocrine tumor. 2. 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 3. Numerous previously seen hepatic lesions are not apparent on today's examination likely secondary to phase of contrast and relative improvement in the degree of hepatic steatosis. Dictated by: Conrad Raymundo MD The radiology attending physician has personally reviewed this study, and had reviewed and/or edited this written report and agrees with it. Electronically signed by: Lyn Hunt M.D. Narrative 02/03/2025 11:25 AM CDT EXAMINATION: Computed tomography of the chest, abdomen and pelvis with intravenous contrast HISTORY: Neuroendocrine cancer TECHNIQUE: Transaxial computed tomographic images of the chest, abdomen and pelvis were obtained with intravenous contrast according to the standard protocol after the uneventful administration of 68 mL Opti-Ray 350 intravenous contrast. COMPARISON: CT 09/23/2024 FINDINGS: Chest: Normal appearance of the thyroid gland. There is no supraclavicular, axillary or mediastinal lymphadenopathy. The heart size is normal. No pericardial effusion. There is coronary atherosclerotic disease. The thoracic esophagus is nondistended. There may be a small hiatal hernia. The thoracic aorta and main pulmonary artery are normal in size. No pleural effusion. No pneumothorax. Partially calcified left lower lobe pulmonary nodule may represent a granuloma. No suspicious pulmonary nodule. Abdomen/Pelvis: Normal appearance of the liver. Previously seen liver lesions are not apparent on today's exam. The gallbladder is normal. The spleen is normal. The adrenal glands are normal. The kidneys enhance symmetrically. There is no hydronephrosis. There is a left renal cyst. The pancreas is normal. The stomach is nondistended. Normal bowel gas pattern. A large partially calcified mass with mesenteric tethering, and stranding compatible with known neuroendocrine tumor measures approximately 3.5 x 3.0 cm in size, and is significantly increased in size compared to CT dated 09/23/2024. The mass appears to tether the terminal ileum and cecum. Multiple adjacent lymph nodes are noted. Scattered mesenteric subcentimeter lymph nodes are similar to prior examination. There is slight mesenteric edema in the mid abdomen, which is similar to prior. Colonic diverticular disease is noted. There is extensive diverticular disease involving the colon, with some wall thickening, likely chronic There unchanged size of small soft tissue nodule adjacent to the bladder, series 2 image 277, 282. No suspicious osseous lesion. Procedure Note Lyn Hunt MD - 02/03/2025 EXAMINATION: Computed tomography of the chest, abdomen and pelvis with intravenous contrast HISTORY: Neuroendocrine cancer TECHNIQUE: Transaxial computed tomographic images of the chest, abdomen and pelvis were obtained with intravenous contrast according to the standard protocol after the uneventful administration of 68 mL Opti-Ray 350 intravenous contrast. COMPARISON: CT 09/23/2024 FINDINGS: Chest: Normal appearance of the thyroid gland. There is no supraclavicular, axillary or mediastinal lymphadenopathy. The heart size is normal. No pericardial effusion. There is coronary atherosclerotic disease. The thoracic esophagus is nondistended. There may be a small hiatal hernia. The thoracic aorta and main pulmonary artery are normal in size. No pleural effusion. No pneumothorax. Partially calcified left lower lobe pulmonary nodule may represent a granuloma. No suspicious pulmonary nodule. Abdomen/Pelvis: Normal appearance of the liver. Previously seen liver lesions are not apparent on today's exam. The gallbladder is normal. The spleen is normal. The adrenal glands are normal. The kidneys enhance symmetrically. There is no hydronephrosis. There is a left renal cyst. The pancreas is normal. The stomach is nondistended. Normal bowel gas pattern. A large partially calcified mass with mesenteric tethering, and stranding compatible with known neuroendocrine tumor measures approximately 3.5 x 3.0 cm in size, and is significantly increased in size compared to CT dated 09/23/2024. The mass appears to tether the terminal ileum and cecum. Multiple adjacent lymph nodes are noted. Scattered mesenteric subcentimeter lymph nodes are similar to prior examination. There is slight mesenteric edema in the mid abdomen, which is similar to prior. Colonic diverticular disease is noted. There is extensive diverticular disease involving the colon, with some wall thickening, likely chronic There unchanged size of small soft tissue nodule adjacent to the bladder, series 2 image 277, 282. No suspicious osseous lesion. IMPRESSION: 1. Interval increase in size of a tethering soft tissue mass in the right lower quadrant with adjacent calcification compatible with neuroendocrine tumor. 2. 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 3. Numerous previously seen hepatic lesions are not apparent on today's examination likely secondary to phase of contrast and relative improvement in the degree of hepatic steatosis. Dictated by: Conrad Raymundo MD The radiology attending physician has personally reviewed this study, and had reviewed and/or edited this written report and agrees with it. Electronically signed by: Lyn Hunt M.D. us Monico Bryant MD IMG CT PROCEDURES Final R esult * (ABNORMAL) POCT hemoglobin A1c (01/19/2025 9:59 AM CDT) Hemoglobin A1C, POC 5.9(A) 4.0 - 5.6 % Blood 01/19/2025 9:59 AM CDT Tk Ley MD POINT OF CARE TEST ORDERABLES F inal Result from Last 3 Months or Most Recently Relevant to Health Maintenance Insurance MEDICARE [employer] SENIOR SUPPLEMENT MEDICARE [facility] SENIOR SUPPLEMENT MEDICARE [employer] SENIOR SUPPLEMENT Advance Directives For more information, please contact: [phone] * Full Code (Latest Code Status on File) Date Activated Date Inactivated Comments 10/12/2024 1:02 PM 10/14/2024 4:13 PM Care Teams Identity Management Developer Relationship Specialty Start Date End Date Nathan Echavarria MD [address] [place] [address] [address] PCP - General Family Medicine 11/11/23 Monico Bryant MD [address] [facility] MEDICAL ONCOLOGY, [facility] [address] [place] [address] Consulting Physician Medical Oncology 01/06/24
--- OUTSIDE RECORDS SUMMARY | 2025-05-24 08:00 | XMS_ITS | Encounter Summary ---
Author Organization [facility] Address [address] [place] [address] Phone Care Team Providers Care Bisque Grader Name Role Phone Nathan Echavarria MD Primary Care Provider [phone] Monico Bryant MD Unavailable [phone] Encounter Details Date Type Department Care Team (Late st Contact Info) Description 04/05/2025 Results Follow-Up [facility] Medicine Cardiology [address] [facility] Medical Office Building [address] [place] [address] Lindsay Montilla NP [address] [address] Lipid panel Social History Tobacco Use Types Packs/Day Years [...] on file documented as of this encounter Visit Diagnoses Not on filedocumented in this encounter Care Teams Bisque Grader Relationship Specialty Start Date End Date Nathan Echavarria MD [facility] [facility] [address] [place] [address] PCP - General Family Medicine 11/11/23 Monico Bryant MD [address] [facility] MEDICAL ONCOLOGY, [facility] [address] [place] [address] Consulting Physician Medical Oncology 01/06/24 documented as of this encounter
--- OUTSIDE RECORDS SUMMARY | 2025-05-24 08:00 | XMS_ITS | Encounter Summary ---
Author Organization [facility] Address [address] [place] [address] Care Team Providers Care Jet Dyeing Machine Operator Name Role Phone Unavailable Primary Care Provider Unavailabl e Encounter Details Date Type Department Care Team (Latest Contact Info) Description 06/21/2008 Outpatient Historical HIS CARD FINISHING ROOM OPERATOR Rey Bourgeois MD [address] 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 [address] [email or web address] Cardiac Catheterization Comprehensive Report Patient: Herman Smalls Study ID: [id number] Gender: M : 1950 Age: 57 years Race: 1 Room: Bed: Height: 70 in ( 177.8 cm ) Study Date: June 21, 2008 Patient status: Outpatient Weight: 207 lb ( 94.1 kg ) Access. #: [id number] POC: Attending MD: Phong Gomez MD: Phong Indications and History: PRIOR DIAGNOSTIC TEST RESULTS: Previous exercise nuclear stress test performed on May 16, 2008 was positive. There was ischemia in the territory of the right coronary artery. Procedure(s) Performed: DIAGNOSTIC PROCEDURES: Left heart catheterization. Left ventriculography. Selective coronary angiography. Study Conclusions: SUMMARY - Global left ventricular function was normal. EF estimated by contrast ventriculography was 60 %. - There was no angiographic evidence for coronary artery disease. RECOMMENDATIONS There is no evidence of obstruction to explain the reported symptoms; the stress test appears to be a false positive. The etiology of the patient's discomfort is still not clear. Following bedrest and subsequent ambulation, the patient will be discharged if feeling well. The patient has been instructed to follow-up with you (the referring physician) in the near future. COMPLICATIONS: There were no complications. Description of Procedure: BACKGROUND INFORMATION: The procedures, together with their attendant risks and alternatives, and conscious sedation were explained to the patient and informed consent was obtained. Contrast ( Optiray, 90 ml ) was administered during the procedure. The patient was given 50.000 mL (IV) IV Solutions. The patient was given 3.000 l/min OXYGEN. The patient was given 2.000 mg VERSED (IVP). NARRATIVE: - Right femoral artery access. Cardiac structures: VENTRICULOGRAPHY: There were no left ventricular regional wall motion abnormalities. Global left ventricular function was normal. EF estimated by contrast ventriculography was 60 %. Coronary and graft angiography: The coronary circulation is right dominant. LEFT ANTERIOR DESCENDING AND BRANCHES: LAD: Angiographically normal. LEFT CIRCUMFLEX AND BRANCHES: Circumflex: Angiographically normal. RIGHT CORONARY AND BRANCHES: RCA: Angiographically normal. IMPRESSIONS: There was no angiographic evidence for coronary artery disease. Condition1: --- Pressure mmHg Rate dPdt AO 131-S/ 82-D, 107-M 68 BPM LV 131-S/ 6-BD, 12-ED 65 BPM 2160 AOp 128-S/ 79-D, 102-M 66 BPM PBa 120-S/ 75-D, 95-M 69 BPM PBv 118-S/ 6-BD, 15-ED 68 BPM 1940 Prepared and Electronically Authenticated Rey Bourgeois MD Confirmed June 21, 2008 09:21:27 Procedure Note Provider, Historical - 06/21/[address] [address] [email or web address] Cardiac Catheterization Comprehensive Report Patient: Herman Smalls Study ID: [id number] Gender: M : 1950 Age: 57 years Race: 1 Room: Bed: Height: 70 in ( 177.8 cm ) Study Date: June 21, 2008 Patient status: Outpatient Weight: 207 lb ( 94.1 kg ) Access. #: [id number] POC: Attending MD: Phong Gomez MD: Phong Indications and History: PRIOR DIAGNOSTIC TEST RESULTS: Previous exercise nuclear stress test performed on May 16, 2008was positive. There was ischemia in the territory of the right coronaryartery. Procedure(s) Performed: DIAGNOSTIC PROCEDURES: Left heart catheterization. Left ventriculography. Selective coronary angiography. Study Conclusions: SUMMARY - Global left ventricular function was normal. EF estimated by contrast ventriculography was 60 %. - There was no angiographic evidence for coronary artery disease. RECOMMENDATIONS There is no evidence of obstruction to explain the reported symptoms;the stress test appears to be a false positive. The etiology of thepatient's discomfort is still not clear. Following bedrest and subsequentambulation, the patient will be discharged if feeling well. The patient has been instructed to follow-up with you (the referring physician) in the near future. COMPLICATIONS: There were no complications. Description of Procedure: BACKGROUND INFORMATION: The procedures, together with their attendant risks and alternatives,and conscious sedation were explained to the patient and informed consentwas obtained. Contrast ( Optiray, 90 ml ) was administered during the procedure. The patient was given 50.000 mL (IV) IV Solutions. Thepatient was given 3.000 l/min OXYGEN. The patient was given 2.000 mg VERSED(IVP). NARRATIVE: - Right femoral artery access. Cardiac structures: VENTRICULOGRAPHY: There were no left ventricular regional wall motion abnormalities.Global left ventricular function was normal. EF estimated by contrast ventriculography was 60 %. Coronary and graft angiography: The coronary circulation is right dominant. LEFT ANTERIOR DESCENDING AND BRANCHES: LAD: Angiographically normal. LEFT CIRCUMFLEX AND BRANCHES: Circumflex: Angiographically normal. RIGHT CORONARY AND BRANCHES: RCA: Angiographically normal. IMPRESSIONS: There was no angiographic evidence for coronary artery disease. Condition1: --- Pressure mmHg Rate dPdt AO 131-S/ 82-D, 107-M 68 BPM LV 131-S/ 6-BD, 12-ED 65 BPM 2160 AOp 128-S/ 79-D, 102-M 66 BPM PBa 120-S/ 75-D, 95-M 69 BPM PBv 118-S/ 6-BD, 15-ED 68 BPM 1940 Prepared and Electronically Authenticated Rey Bourgeois MD Confirmed June 21, 2008 09:21:27 us Rey Bourgeois MD FLUOROSCOPY ORDERABLES Final Result INTERFACE SYSTEM Refer to clinic/hospital department documented in this encounter Visit Diagnoses Diagnosis Dizziness and giddiness documented in this encounter
--- OUTSIDE RECORDS SUMMARY | 2025-05-24 08:00 | XMS_ITS | Clinical Summary ---
Author Organization [email or web address] Address [address] [facility] Attn: Epic Prelude ADT [place] [address] Care Team Providers Care Tennis Coach Name Role Phone Unavailable Primary Care Provider Unavailabl e Social History Tobacco Use Types Packs/Day Years Used Date Smoking Tobacco: Never Assessed Sex and Gender Information Value Date Recorded Sex Assigned at Not on file Legal Sex Male 5:39 AM PLANT CLERK Gender Identity Not on file Sexual Orientation Not on file Plan of Treatment Health Maintenance Due Date Last Done Comments DTAP/TDAP/TD VACCINES (1 - Tdap) 1969 COLORECTAL SCREENING 11/17/1995 Colorectal Cancer Screening 11/17/1995 FIT-DNA Q 3 years 11/17/1995 FIT/FOBT Q 1 year 11/17/1995 Flex Sig/CT Colonography Q 5 years 11/17/1995 PNEUMOCOCCAL VACCINE 50+ YEARS (1 of 1 - PCV) 11/17/19 ZOSTER VACCINE (1 of 2) 2000 INFLUENZA VACCINE (#1) 2025 RSV VACCINE (60+ or ) (1 - 1-dose 75+ series) 2025
--- OUTSIDE RECORDS SUMMARY | 2025-05-24 08:00 | XMS_ITS ---
Author Organization [facility] Address [address] [place] [address] Care Team Providers Care Sales Agent Food Vending Service Name Role Phone Nathan Echavarria MD Primary Care Provider [phone] Monico Bryant MD Unavailable [phone] Active Problems Problem Noted Date Diagnosed Date Hyperosmolar hyperglycemic state (HHS) Severe protein-calorie malnutrition 10/14/2024 Type 2 diabetes mellitus wit h hyperglycemia, without long-term current use of insulin 10/12/2024 Assessment & Plan (10/14/2024 10:35 AM NOVELTY MAKER): Pt w/ symptomatic hyperglycemia w/ fatigue, polydipsia, [...] 10/12/2024 Assessment & Plan (10/14/2024 10:32 AM NOVELTY MAKER): In the setting of severe hyperglycemia. Improved with IVF and improved glycemic control. Restarted aldactone and losartan. Encourage hydration and follow up with PCP for repeat labs next week to ensure continued improvement. High risk medication use 09/22/2024 Former tobacco use 09/22/2024 RAUDEL on CPAP 09/22/2024 Assessment & Plan (10/12/2024 4:58 PM NOVELTY MAKER): Home CPAP Mixed hyperlipidemia 03/11/2024 Assessment & Plan (10/12/2024 5:00 PM NOVELTY MAKER): Continue statin and fenofibrate Bradycardia 03/10/2024 Primary hypertension 03/10/2024 Assessment & Plan (10/14/2024 10:31 AM NOVELTY MAKER): Cont home losartan/hctz and spironolactone now that RASHAD and hyperkalemia improved. Recommend close OP follow up with PCP and repeat BMP in 1 week. Coronary artery calcification seen on CAT scan 0 03/10/2024 Secondary neuroendocrine tumors 01/20/2024 Neuroendocrine cancer 12/08/2023 Assessment & Plan (10/14/2024 10:30 AM NOVELTY MAKER): w/ disease in mesenteric, peritoneum, liver, and bone on lanreotide since 01/2024 w/ stable disease on 09/23/2024. -Manny is oncologist. Continue OP follow up. Current Treatment and Therapy Plans Lanreotide 28 Day Cycles - Carcinoid* Plan Start Date:01/27/2024 Plan Provider:Monico Bryant MD Linked Problems Neuroendocrine cancer (HCC) Treatment Medications Current Day (Day 1 , Cycle 16 - Planned for 05/31/2025) Next Day (Day 1, Cycle 17 - Planned for 06/28/2025) lanreotide (SOMATULINE DEPOT) lanreotide (SOMATULINE DEPOT) subcutaneous injection 120 mg lanreotide (SOMATULINE DEPOT) subcutaneous injection 120 mg Past Treatment and Therapy Plans No past plan information found. Lifetime Dose Tracking * Chemical Lifetime Dose Automatic Entry Manual Entr y DLP 2,015 mGycm 2,015 mGycm 0 mGycm Resolved Problems Problem Noted Date Diagnosed Date Resolved Date Hyperosmolar hyperglycemic state (HHS) 10/12/2024 10/12/2024
--- NOTE | 2025-05-24 08:08 | ECG_ITS ---
Test Date: 2025-05-24 08:20:09 Measurements Intervals [place] Rate: 47 P: 18 MT: 172 QRS: -61 QRSD: 122 T: -26 QT: 426 QTc: 379 Interpretive Statements SINUS BRADYCARDIA MARKED LEFT AXIS DEVIATION [QRS AXIS < -30] MODERATE INTRAVENTRICULAR CONDUCTION DELAY [110+ ms QRS DURATION] WARNING: DATA QUALITY MAY AFFECT INTERPRETATION No previous ECG available for comparison Electronically Signed On 05-24-2025 14:42:55 CDT by Refugio Parker M.D.
[2025-05-24 08:39] LABS: Anion Gap 7 mmol/L (4-12); Blood Urea Nitrogen 39 mg/dL (9-20); Calcium 9.3 mg/dL (8.4-10.2); Carbon Dioxide 28 mmol/L (22-30); Chloride 103 mmol/L (98-107); Estimated Glomerular Filt Rate 46; Glucose 77 mg/dL (65-110); Potassium 4.6 mmol/L (3.4-5.0); Sodium 138 mmol/L (137-145)
== END 2025-05-24 07:53 | disposition home or self-care (01) ==
LOC: ANHSURGERY 07:53
PROVIDERS: Anesthesiology; PCP Family Medicine; Visit Provider Otolaryngology Otolaryngology/Facial Plastic Surgery
DX: Z01.818 Encounter for other preprocedural examination (principal); E11.9 Type 2 diabetes mellitus without complications; I10 Essential (primary) hypertension; R94.31 Abnormal electrocardiogram [ECG] [EKG]
CPT/HCPCS: 36415; 80048; 93005

== ENCOUNTER 2025-05-27 02:58 | Day surgery (SDC) | payer MEDICARE, SELFPAY ==
--- NOTE | 2025-05-23 15:17 | PC.NURSE ---
[facility] has started construction of its new state of the art ER which will open Spring 2026. With this, we anticipate parking may be a challenge for some our surgical patients and families. Parking spaces are limited but are available for all Surgical, obstetrics, and ER patients sharing this lot. If you arrive and find you are having a hard time finding a parking space, please note that we understand the challenges, please drive around the hospital and park near Hospital Entrance 1. When you enter this entrance, you can ask a volunteer to direct or take you back to the surgical waiting area to check in. We appreciate everyone?s understanding of these expected challenges while we build for your future. Report to the Outpatient Waiting Room, entrance under the green pavilion located off [address], at time ___6:30 AM____ on date _05/27/25 . Planned Procedure Time: _8:30 AM .? Time changes happen often and if your time is changed the preop area will call you the afternoon before. - You and your visitor will be asked to self-screen and do not enter if you have any COVID symptoms. Please call surgeon if you need to reschedule. - A mask is optional within the hospital at this time. Patients may have clear liquids (water, carbonated beverages, clear teas, apple juice) until 3 hours prior to surgery( 5:30 AM) with a maximum of 20 ounces. - No food from midnight until time of surgery and no smoking, or chewing tobacco (or any form of nicotine). No chewing gum, candy or mints. - Take only the following medications with a SIP of water on the morning of surgery: ____SERTRALINE DO NOT STOP ANY OF YOUR OTHER PRESCRIPTION MEDICATIONS PRIOR TO SURGERY EXCEPT THE FOLLOWING Hold all vitamins and supplements for 3 days per anesthesiologist. Medications to discontinue per physician NONE Date to take last dose Please no make-up, nail yoruba, hairspray, perfume, deodorant, or body powder the day of surgery.? No jewelry (including any body piercings) or valuables the day of surgery, leave them at home.? Please take a shower or bath the night before, or the morning of, surgery with an antibacterial soap.? Wear comfortable, loose fitting clothing.? Children are encouraged to wear pajamas. - Jewelry must be removed prior to entering the operating room.? Rings and piercings that are not removed may be cut off. - The hospital will not accept responsibility for valuables.? - Please leave all valuables, including medications, at home the day of surgery. If you are going home after surgery, a licensed lease purchase driver must drive you home.? - NO public transportation without another adult if you receive anesthesia. - We recommend that an adult stay with you for 24 hours following discharge. - We also recommend that you do not drive, make important decision, drink alcoholic beverages, or take any drugs that were not prescribed by your health care provider for at least 24 hours after your discharge time. Follow any additional instructions given to you from your surgeon. Telephone instructions given to __PATIENT and asked if any additional questions and then verbalized understanding. Patient advised to call surgeon office or pre surgery nurse liaison [phone] if any additional questions.
[2025-05-23 15:42] VITALS: BMI 25.8
[2025-05-27] VITALS (8 sets, daily range): BP systolic 108–151; BP diastolic 68–97; PULSE 52–63; RESP 10–18; TEMP 35.8–36.6; O2SAT 98–100
--- OUTSIDE RECORDS SUMMARY | 2025-05-27 03:03 | XMS_ITS | Encounter Summary ---
Author Organization [facility] Address [address] [place] [address] Care Team Providers Care Support Assistant Name Role Phone Unavailable Primary Care Provider Unavailabl e Encounter Details Date Type Department Care Team (Latest Contact Info) Description 06/21/2008 Outpatient Historical HIS CARD EXECUTIVE CANDIDATE DEVELOPER Rey Bourgeois MD [address] [facility] [address] [place] [address] Dizziness and Giddiness Social History Tobacco Use Types Packs/Day Years Used Date Smoking Tobacco: Never Assessed Sex and Gender Information Value Date Recorded Sex Assigned at Not on file Legal Sex Male 5:39 AM [employer] Gender Identity Not on file Sexual Orientation Not on file documented as of this encounter Plan of Treatment Not on file documented as of this encounter Procedures Procedure Name Priority Date/Time Associated Diagnosis Comments CL CORONARY ANGIOGRAM Routine 06/21/2008 9:41 AM CDT documented in this encounter Results * CL CORONARY ANGIOGRAM (06/21/2008 9:41 AM CDT) Narrative INTERFACE SYSTEM - 06/21/2008 9:41 AM CDT [facility] [address] [place] [address] [email or web address] Cardiac Catheterization Comprehensive Report Patient: Herman Smalls Study ID: [id number] Gender: M : 1950 Age: 57 years Race: 1 Room: Bed: Height: 70 in ( 177.8 cm ) Study Date: June 21, 2008 Patient status: Outpatient Weight: 207 lb ( 94.1 kg ) Access. #: [id number] POC: Attending MD: Phong Gomez MD: Phong [...] 09:21:27 Procedure Note Provider, Historical - 06/21/[address] [address] [email or web address] Cardiac Catheterization Comprehensive Report Patient: Herman Smalls Study ID: [id number] Gender: M : 1950 Age: 57 years Race: 1 Room: Bed: Height: 70 in ( 177.8 cm ) Study Date: June 21, 2008 Patient status: Outpatient Weight: 207 lb ( 94.1 kg ) Access. #: [id number] POC: Attending MD: Phong Gomez MD: Phong [...]
--- OUTSIDE RECORDS SUMMARY | 2025-05-27 03:03 | XMS_ITS | Encounter Summary ---
Author Organization [facility] Address [address] [place] [address] Phone Care Team Providers Care Auto Emissions Technician Name Role Phone Nathan Echavarria MD Primary Care Provider [phone] Monico Bryant MD Unavailable [phone] Encounter Details Date Type Department Care Team (Late st Contact Info) Description 04/05/2025 Results Follow-Up [facility] Medicine Cardiology [address] [facility] [address] [place] [address] Lindsay Montilla NP [address] [address] Lipid panel Social History Tobacco [...] on filedocumented in this encounter Care Teams Auto Emissions Technician Relationship Specialty Start Date End Date Nathan Echavarria MD [facility] [facility] [address] [place] [address] PCP - General Family Medicine 11/11/23 Monico Bryant MD [address] [facility] MEDICAL ONCOLOGY, [facility] [address] [place] [address] Consulting Physician Medical Oncology 01/06/24 documented as of this encounter
--- OUTSIDE RECORDS SUMMARY | 2025-05-27 03:03 | XMS_ITS ---
Author Organization [facility] Address [address] [place] [address] Care Team Providers Care Hot Mill Worker Name Role Phone Nathan Echavarria MD Primary Care Provider [phone] Monico Bryant MD Unavailable [phone] Active Problems Problem Noted Date Diagnosed Date Hyperosmolar hyperglycemic state (HHS) Severe protein-calorie malnutrition 10/14/2024 Type 2 diabetes mellitus wit h hyperglycemia, without long-term current use of insulin 10/12/2024 Assessment & Plan (10/14/2024 10:35 AM BALANCE WHEEL ARM BURNISHER): Pt w/ symptomatic hyperglycemia w/ fatigue, polydipsia, [...] 10/12/2024 Assessment & Plan (10/14/2024 10:32 AM BALANCE WHEEL ARM BURNISHER): In the setting of severe hyperglycemia. Improved with IVF and improved glycemic control. Restarted aldactone and losartan. Encourage hydration and follow up with PCP for repeat labs next week to ensure continued improvement. High risk medication use 09/22/2024 Former tobacco use 09/22/2024 RAUDEL on CPAP 09/22/2024 Assessment & Plan (10/12/2024 4:58 PM BALANCE WHEEL ARM BURNISHER): Home CPAP Mixed hyperlipidemia 03/11/2024 Assessment & Plan (10/12/2024 5:00 PM BALANCE WHEEL ARM BURNISHER): Continue statin and fenofibrate Bradycardia 03/10/2024 Primary hypertension 03/10/2024 Assessment & Plan (10/14/2024 10:31 AM BALANCE WHEEL ARM BURNISHER): Cont home losartan/hctz and spironolactone now that RASHAD and hyperkalemia improved. Recommend close OP follow up with PCP and repeat BMP in 1 week. Coronary artery calcification seen on CAT scan 0 03/10/2024 Secondary neuroendocrine tumors 01/20/2024 Neuroendocrine cancer 12/08/2023 Assessment & Plan (10/14/2024 10:30 AM BALANCE WHEEL ARM BURNISHER): w/ disease in mesenteric, peritoneum, liver, and [...]
--- OUTSIDE RECORDS SUMMARY | 2025-05-27 03:03 | XMS_ITS | Clinical Summary ---
Author Organization [facility] Address [address] [place] [address] Care Team Providers Care Tennis Net Maker Name Role Phone Nathan Echavarria MD Primary Care Provider [phone] Monico Bryant MD Unavailable [phone] Allergies No known active allergies Medications solifenacin [...] 10/12/2024 Assessment & Plan (10/14/2024 10:35 AM MILL ATTENDANT): Pt w/ symptomatic hyperglycemia w/ fatigue, polydipsia, [...] 10/12/2024 Assessment & Plan (10/14/2024 10:32 AM MILL ATTENDANT): In the setting of severe hyperglycemia. Improved with IVF and improved glycemic control. Restarted aldactone and losartan. Encourage hydration and follow up with PCP for repeat labs next week to ensure continued improvement. High risk medication use 09/22/2024 Former tobacco use 09/22/2024 RAUDEL on CPAP 09/22/2024 Assessment & Plan (10/12/2024 4:58 PM MILL ATTENDANT): Home CPAP Mixed hyperlipidemia 03/11/2024 Assessment & Plan (10/12/2024 5:00 PM MILL ATTENDANT): Continue statin and fenofibrate Bradycardia 03/10/2024 Primary hypertension 03/10/2024 Assessment & Plan (10/14/2024 10:31 AM MILL ATTENDANT): Cont home losartan/hctz and spironolactone now that RASHAD and hyperkalemia improved. Recommend close OP follow up with PCP and repeat BMP in 1 week. 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 -Trikalinos is oncologist. Continue OP follow up. Resolved Problems Problem Noted Date Diagnosed Date Resolved Date Hyperosmolar hyperglycemic state (HHS) 10/12/2024 10/12/2024 Encounters Date Type Department Care Team Description 05/25/2025 10:40 AM CDT Office Visit [facility] Medicine Endocrinology Metabolism and Lipid 1 [facility] [address] [place] [id number] Tk Ley MD Type 2 diabetes mellitus with hyperglycemia, without long-term current use of insulin (HCC) (Primary Dx); Stage 3b chronic kidney disease (HCC); Hyperlipidemia, unspecified hyperlipidemia type 05/03/2025 11:00 AM CDT Infusion [facility] - Infusion [address] 5 [place] [address] Neuroendocrine cancer (HCC) (Primary Dx) 05/03/2025 10:00 AM CDT Lab [facility] - Lab Collection [address] 5 [place] [address] Neuroendocrine cancer (HCC) 04/05/2025 10:45 AM CDT Infusion [facility] - Infusion [address] 5 [place] [address] Neuroendocrine cancer (HCC) (Primary Dx) 04/05/2025 9:45 AM CDT Office Visit [facility] Medicine Oncology [address] [place] [address] Floor 5 [place] [address] Wanda Portillo NP Neuroendocrine cancer (HCC) (Primary Dx) 04/05/2025 8:45 AM CDT Lab [facility] - Lab Collection [facility] 5 [place] [address] Neuroendocrine cancer (HCC); Primary hypertension; Bradycardia; Coronary artery calcification seen on CAT scan; Mixed hyperlipidemia; High risk medication use 04/05/2025 Results Follow-Up [facility] [address] [place] [address] Medical Office Building [address] [place] [address] Lindsay Montilla NP Lipid panel 03/31/2025 12:01 PM CDT - 03/31/2025 11:59 PM CDT Hospital Encounter [facility] - PET [address] 8 [place] [address] Discharge Disposition: Discharge to home or self care 03/31/2025 12:00 PM CDT - 03/31/2025 11:59 PM CDT Hospital Encounter [facility] - PET [address] [place] [address] Neuroendocrine cancer (HCC) Discharge Disposition: Discharge to home or self care 03/28/2025 1:00 PM CDT Office Visit [facility] [address], [address] [place] [address] Lindsay Montilla NP Primary hypertension (Primary Dx); Neuroendocrine cancer (HCC); Bradycardia; Coronary artery calcification seen on CAT scan; Mixed hyperlipidemia; High risk medication use; Former tobacco use; RAUDEL on CPAP 03/08/2025 9:30 AM CDT Infusion [facility] - Infusion [address] [facility] Floor 5 [place] [address] Neuroendocrine cancer (HCC) (Primary Dx) 03/08/2025 8:30 AM CDT Office Visit [facility] Medicine Oncology [address] [facility] Floor 5 [place] [phone] Wanda Portillo NP Neuroendocrine cancer (HCC) (Primary Dx) 03/08/2025 7:30 AM CDT Lab [facility] - Lab Collection [address] [facility] Floor 5 [place] [address] Neuroendocrine cancer (HCC) from Last 3 Months [...] Passive Smoke Exposure: Past Smokeless Tobacco: Never Tobacco Cessation:Counseling Given: Not Answered Personal Safety Answer Date Recorded Have you [...] Sign Reading Time Taken Comments Blood Pressure 147/82 05/25/2025 10:48 AM CDT Pulse 54 05/25/2025 10:48 AM CDT Temperature 36.3 C (97.4 F) 05/25/2025 10:48 AM CDT Respiratory Rate 18 05/03/2025 11:3 4 AM CDT Oxygen Saturation 98% 05/03/2025 11: 34 AM CDT Inhaled Oxygen Concentration - - Weight 82.5 kg (181 lb 12.8 oz) 025 10:48 AM CDT Height 172.7 cm (5' 8) 05/25/2025 10:4 8 AM CDT Body Mass Index 27.64 05/25/2025 10:48 AM CDT Plan of Treatment Health Maintenance Due Date Last Done Comments Albumin Creatinine Ratio, Urine 1950 Colon Cancer Screening-Colonoscopy 1950 Depression Screening 1950 Hepatitis C Screening 1950 Dilated Eye Exam 1950 Foot Exam 1950 DTaP/Tdap/Td Vaccine (1 - Tdap) 1961 Hepatitis B Screening 1968 Zoster Vaccine (1 of 2) 1969 Well Visit 65+ 11/17/2015 Covid-19 Vaccine (5 - 2024-2 6 season) 2025 05/25/2022, 06/13/2021, 11/18/2020, Additional history exists Influenza Vaccine (#1) 2025 , 10/24/2023, 05/25/2022, Additional history exists Fall Risk Assessment 10/14/2025 10/14/2024 Hemoglobin A1C 11/23/2025 05/25/2025, 05/2 03/2025, 10/12/2024 Lipid Panel 04/05/2026 04/05/2025, 03/30/2024 eGFR 05/03/2026 05/03/2025, 03/25, 03/08/2025, Additional history exists Pneumococcal vaccine 65+ Completed 024, 05/25/2022, 11/29/2019 Abdominal Aortic Aneurysm (A AA) Screen Completed 02/03/2025, 09/23/2024, 06/03/2024 Procedures Procedure Name Priority Date/Time Associated Diagnosis Comments POCT HEMOGLOBIN A1C Routine 05/25/2025 10:55 AM CDT Type 2 diabetes mellitus with hyperglycemia, without long-term current use of insulin (HCC) DIFFERENTIAL AUTO STAT 05/03/2025 10:36 AM CDT [...] 02/03/2025 10:09 AM CDT Neuroendocrine cancer (HCC) from Last 3 Months or Most Recently Relevant to Health Maintenance Results * (ABNORMAL) POCT hemoglobin A1c (05/25/2025 10:55 AM CDT) Pathologist [facility] Hemoglobin A1C, POC 5.8(A) 4.0 - 5.6 % Blood 05/25/2025 10:5 5 AM CDT us Tk Ley MD POINT OF CARE TEST ORDERABLES F inal Result * (ABNORMAL) eGFR (05/03/2025 10:36 AM CDT) Pathologist [facility] eGFR 48(L) >=60 mL/min/1. 73 m2 Comment: [...] CDT 05/03/2025 10:48 AM CDT Wanda Portillo NP LAB BLOOD ORDERABLES Malena napoles Result [facility] Department [place] [address] * Differential, auto (05/03/2025 10:36 AM CDT) Neutrophil abs 3.78 1.50 - 6.50 K/cumm Comment:Testing performed by : [facility], [address] [place] [address] Lymphocyte abs 1.19 0.80 - 3.30 K/cumm [facility] Comment:Testing performed by : [facility], [address] [place] [address] Monocyte abs 0.51 0.20 - 0.80 K/cumm [facility] Comment:Testing performed by : [facility], [address] [place], [place] [phone] Eosinophil abs 0.08 0.00 - 0.50 K/cumm [facility] Comment:Testing performed by : [facility], [address] [place] [phone] Basophil abs 0.02 0.00 - 0.10 K/cumm [facility] Comment:Testing performed by : [facility], [address] [place] [phone] Neutrophil pct 67.9 % [facility] Comment: Interpretive Data Percent cell count reference ranges are not reported, since discordance with absolute values may lead to misinterpretation of CBC data. Current Interpretive Data was last revised on 2017. Testing performed by: [facility], [address] [place] [phone] Lymphocyte pct 21.3 % [facility] Comment: Interpretive Data Percent cell count reference ranges are not reported, since discordance with absolute values may lead to misinterpretation of CBC data. Current Interpretive Data was last revised on 2017. Testing performed by: [facility], [address] [place] [phone] Monocyte pct 9.1 % [facility] Comment: Interpretive Data Percent cell count reference ranges are not reported, since discordance with absolute values may lead to misinterpretation of CBC data. Current Interpretive Data was last revised on 2017. Testing performed by: [facility], [address] [place] [phone] Eosinophil pct 1.4 % [facility] Comment: Interpretive Data Percent cell count reference ranges are not reported, since discordance with absolute values may lead to misinterpretation of CBC data. Current Interpretive Data was last revised on 2017. Testing performed by: [facility], [address] [place] [phone] Basophil pct 0.4 % [facility] Comment: Interpretive Data Percent cell count reference ranges are not reported, since discordance with absolute values may lead to misinterpretation of CBC data. Current Interpretive Data was last revised on 2017. Testing performed by: [facility], [address] [place] [phone] Blood 05/03/2025 10:3 6 AM CDT 05/03/2025 11:44 AM CDT Wanda Portillo [employer] LAB BLOOD ORDERABLES Malena napoles Result [facility] Department [place] [address] * (ABNORMAL) CBC with auto differential (05/03/2025 10:36 AM CDT) WBC 5.57 3.80 - 9.90 K/cumm Comment:Testing performed by : [facility], [address] [place] [address] Hgb 12.5(L) 13.0 - 17.5 g/dL [facility] Comment:Testing performed by : [facility], [address] [place] [address] Hct 36.9(L) 38.9 - 50.3 % [facility] Comment:Testing performed by : [facility], [address] [place] [address] Plt 188 150 - 400 K/cumm [facility] Comment:Testing performed by : [facility], [address] [place] [address] MPV 8.6 6.8 - 10.4 fL [facility] Comment:Testing performed by : [facility], [address] [place] [address] RBC 4.24(L) 4.30 - 5.80 M/cumm [facility] Comment:Testing performed by : [facility], [address] [place] [address] MCV 86.8 81.3 - 96.4 fL [facility] Comment:Testing performed by : [facility], [address] [place] [address] MCH 29.5 27.1 - 33.3 pg [facility] Comment:Testing performed by : [facility], [address] [place] [address] MCHC 34.0 32.3 - 35.7 g/dL [facility] Comment:Testing performed by : [facility], [address] [place], [place] [phone] RDW CV 15.0(H) 11.1 - 14.9 % [facility] Comment:Testing performed by : [facility], [address] [place] [phone] NRBC abs 0.00 0.00 - 0.01 K/cumm [facility] Comment:Testing performed by : [facility], [address] [place] [phone] Blood 05/03/2025 10:3 6 AM CDT 05/03/2025 11:44 AM CDT Wanda Portillo [employer] LAB BLOOD ORDERABLES Malena l Result Performing Organization Address [facility] Co de Phone Number [facility] [place] [address] * Serotonin serum (05/03/2025 10:36 AM CDT) [facility] Serotonin 68 <=230 ng/mL [facility] Comment: ADDITIONAL INFORMATION This test was developed and its performance characteristics determined by [facility] in a manner consistent with CLIA requirements. This test has not been cleared or approved by the U.S. Food and Drug Administration. Test Performed by: [facility] - [address] [address] Rn Circulating: Swathi Malagon Ph.D.; CLIA# [id number] Blood 05/03/2025 10:3 6 AM CDT 05/03/2025 12:40 PM CDT Wanda Portillo NP LAB BLOOD ORDERABLES Malena l Result Performing Organization Address [facility] Co de Phone Number [facility] [place] [address] [facility] * (ABNORMAL) Comprehensive metabolic panel (05/03/2025 10:36 AM CDT) Sodium 143 135 - 145 mmol/L Potassium, pl 4.5 3.3 - 4.9 mmol/L [facility] Chloride 103 97 - 110 mmol/L [facility] CO2 28 22 - 32 mmol/L [facility] Anion gap 12 2 - 15 mmol/L [facility] BUN 32(H) 6 - 25 mg/dL [facility] Creatinine 1.52(H) 0.80 - 1.30 mg/dL [facility] Glucose 84 70 - 199 mg/dL [facility] Comment: Interpretive Data Fasting glucose >/= [...] 2022. Calcium 10.1 8.5 - 10.3 mg/dL [facility] Bilirubin, total 0.5 0.1 - 1.2 mg/dL [facility] Protein, pl 7.7 6.5 - 8.5 g/dL [facility] Albumin 4.6 3.5 - 5.0 g/dL [facility] Alk phos 26(L) 40 - 130 Units/L [facility] ALT 31 7 - 55 Units/L [facility] AST 42 10 - 50 Units/L [facility] Blood 05/03/2025 10:3 6 AM CDT 05/03/2025 10:48 AM CDT us Wanda Portillo NP LAB BLOOD ORDERABLES Malena l Result [facility] Department [place] [address] * Chromogranin A (05/03/2025 10:26 AM CDT) Chromogranin A 81 <93 ng/mL [facility] Comment: ADDITIONAL INFORMATION The testing method is a homogeneous time-resolved immunofluorescent assay manufactured by [employer] and performed on the [email or web address] Kryptor Compact Plus. Values obtained with different [...] examination and other findings. Test Performed by: [place] [address] Rn Circulating: Swathi Malagon Ph.D.; CLIA# [id number] Blood 05/03/2025 10:2 6 AM CDT 05/03/2025 2:02 PM CDT us Wanda Portillo [employer] LAB BLOOD ORDERABLES Malena l Result [facility] Department [place] [address] [facility] * (ABNORMAL) eGFR (04/05/2025 8:41 [...] MD LAB BLOOD ORDERABLES Malena napoles Result [facility] Department [place] [address] * Differential, auto (04/05/2025 8:41 AM CDT) Neutrophil abs 3.29 1.50 - 6.50 K/cumm Comment:Testing performed by : [facility], [address] [place], [place] [phone] Lymphocyte abs 1.17 0.80 - 3.30 K/cumm [facility] Comment:Testing performed by : [facility], [address] [place] [address] Monocyte abs 0.52 0.20 - 0.80 K/cumm [facility] Comment:Testing performed by : [facility], [address] [place] [address] Eosinophil abs 0.13 0.00 - 0.50 K/cumm [facility] Comment:Testing performed by : [facility], [address] [place] [address] Basophil abs 0.03 0.00 - 0.10 K/cumm [facility] Comment:Testing performed by : [facility], [address] [place] [phone] Neutrophil pct 64.1 % [facility] Comment: Interpretive Data Percent cell count reference ranges are not reported, since discordance with absolute values may lead to misinterpretation of CBC data. Current Interpretive Data was last revised on 2017. Testing performed by: [facility], [address] [place] [phone] Lymphocyte pct 22.7 % [facility] Comment: Interpretive Data Percent cell count reference ranges are not reported, since discordance with absolute values may lead to misinterpretation of CBC data. Current Interpretive Data was last revised on 2017. Testing performed by: [facility], [address] [place] [phone] Monocyte pct 10.0 % [facility] Comment: Interpretive Data Percent cell count reference ranges are not reported, since discordance with absolute values may lead to misinterpretation of CBC data. Current Interpretive Data was last revised on 2017. Testing performed by: [facility], [address] [place] [phone] Eosinophil pct 2.6 % [facility] Comment: Interpretive Data Percent cell count reference ranges are not reported, since discordance with absolute values may lead to misinterpretation of CBC data. Current Interpretive Data was last revised on 2017. Testing performed by: [facility], [address] [place] [phone] Basophil pct 0.6 % [facility] Comment: Interpretive Data Percent cell count reference ranges are not reported, since discordance with absolute values may lead to misinterpretation of CBC data. Current Interpretive Data was last revised on 2017. Testing performed by: [facility], [address] [place] [phone] Blood 04/05/2025 8:41 AM CDT 04/05/2025 8:45 AM CDT us Monico Bryant MD LAB BLOOD ORDERABLES Malena l Result [facility] Department [place] [address] * Chromogranin A (04/05/2025 8:41 AM CDT) Chromogranin A 76 <93 ng/mL [facility] Comment: ADDITIONAL INFORMATION The testing method is a homogeneous time-resolved immunofluorescent assay manufactured by [employer] and performed on the [email or web address] Kryptor Compact Plus. Values obtained with different [...] examination and other findings. Test Performed by: [place] [address] Rn Circulating: Swathi Malagon Ph.D.; CLIA# [id number] Blood 04/05/2025 8:41 AM CDT 04/05/2025 10:06 AM CDT Monico Bryant MD LAB BLOOD ORDERABLES Malena l Result [facility] Department [place] [address] [facility] Lab * (ABNORMAL) CBC with auto differential (04/05/2025 8:41 AM CDT) Pathologist [facility] WBC 5.13 3.80 - 9.90 K/cumm Comment:Testing performed by : [facility], [address] [place] [phone] Hgb 12.9(L) 13.0 - 17.5 g/dL [facility] SCH[facility] Comment:Testing performed by : [facility], [address] [place], [place] [phone] Hct 37.4(L) 38.9 - 50.3 % [facility] Comment:Testing performed by : [facility], [address] [place], [place] [phone] Plt 199 150 - 400 K/cumm [facility] Comment:Testing performed by : [facility], [address] [place], [place] [phone] MPV 7.4 6.8 - 10.4 fL [facility] Comment:Testing performed by : [facility], [address] [place], [place] [phone] RBC 4.40 4.30 - 5.80 M/cumm [facility] Comment:Testing performed by : [facility], [address] [place], [place] [phone] MCV 85.1 81.3 - 96.4 fL [facility] Comment:Testing performed by : [facility], [address] [place], [place] [phone] MCH 29.2 27.1 - 33.3 pg [facility] Comment:Testing performed by : [facility], [address] [place] [address] MCHC 34.4 32.3 - 35.7 g/dL [facility] Comment:Testing performed by : [facility], [address] [place], [place] [phone] RDW CV 14.7 11.1 - 14.9 % [facility] Comment:Testing performed by : [facility], [address] [place] [address] NRBC abs 0.00 0.00 - 0.01 K/cumm [facility] Comment:Testing performed by : [facility], [address] [place], [place] [phone] Blood 04/05/2025 8:41 AM CDT 04/05/2025 8:45 AM CDT Monico Bryant MD LAB BLOOD ORDERABLES Malena l Result Performing Organization Address City/[facility] Co de Phone Number [facility] Department [place] [address] * Serotonin serum (04/05/2025 8:41 AM CDT) Serotonin 84 <=230 ng/mL [facility] Comment: ADDITIONAL INFORMATION This test was developed and its performance characteristics determined by [facility] in a manner consistent with CLIA requirements. This test has not been cleared or approved by the U.S. Food and Drug Administration. Test Performed by: [address] [address] Rn Circulating: Swathi Malagon Ph.D.; CLIA# [id number] Blood 04/05/2025 8:41 AM CDT 04/05/2025 10:25 AM CDT Monico Bryant MD LAB BLOOD ORDERABLES Malena l Result Performing Organization Address [facility] Co de Phone Number [facility] [employer] [place] [address] [facility] * Lipid panel (04/05/2025 8:41 AM [...] revised on 2018. Triglycerides 139 <=149 mg/dL [facility] Comment: Interpretive Data Ages < or [...] revised on 2018. HDL 44 >=40 mg/dL [facility] Comment: Interpretive Data Ages < or [...] on 2018. LDL, calculated 56 <=129 mg/dL [facility] Comment: Interpretive Data Ages < or [...] 2004;110:227 3. Hamilton Foley al. MAJO Cardiol. 2020 December 23;5(5):540-548. doi: 10.1001/jamacardio.2020.0013 Current Interpretive Data was last revised on 2024. Non-HDL Cholesterol 80 mg/dL [facility] Comment: Interpretive Data Ages < or [...] last revised on 2018. Chol/HDL ratio 3 [facility] Blood 04/05/2025 8:41 AM CDT 04/05/2025 8:46 AM CDT us Lindsay Rater [employer] LAB BLOOD ORDERABLES Final Resul t [facility] Department [place] [address] * (ABNORMAL) Comprehensive metabolic panel (04/05/2025 8:41 AM CDT) Sodium 139 135 - 145 mmol/L Potassium, pl 4.3 3.3 - 4.9 mmol/L [facility] Chloride 101 97 - 110 mmol/L [facility] CO2 28 22 - 32 mmol/L [facility] Anion gap 10 2 - 15 mmol/L [facility] BUN 43(H) 6 - 25 mg/dL [facility] Creatinine 1.64(H) 0.80 - 1.30 mg/dL [facility] Glucose 109 70 - 199 mg/dL [facility] Comment: Interpretive Data Fasting glucose >/= [...] 2022. Calcium 9.9 8.5 - 10.3 mg/dL [facility] [facility] Bilirubin, total 0.5 0.1 - 1.2 mg/dL [facility] Protein, pl 7.6 6.5 - 8.5 g/dL [facility] Albumin 4.5 3.5 - 5.0 g/dL [facility] Alk phos 28(L) 40 - 130 Units/L [facility] ALT 20 7 - 55 Units/L [facility] AST 30 10 - 50 Units/L [facility] Blood 04/05/2025 8:41 AM CDT 04/05/2025 8:46 AM CDT us Monico Bryant MD LAB BLOOD ORDERABLES Malena l Result [facility] Department [place] [address] * PET/CT Dotatate Skull to Thigh (03/31/2025 [...] -PET/CT IMAGING DATE OF STUDY: 03/31/2025 SCANNER: [facility] Nonoba (SQ1). This is a high-resolution scanner, which [...] obtained. The study was interpreted on the [employer] workstation. The total scanned area was skull [...] -PET/CT IMAGING DATE OF STUDY: 03/31/2025 SCANNER: [facility] Nonoba (SQ1). This is a high-resolution scanner, which [...] obtained. The study was interpreted on the [employer] workstation. The total scanned area was skull [...] it. Electronically signed by: Emil Hopkins M.D. Monico Bryant MD IMG PET PROCEDURES Final Result * (ABNORMAL) eGFR (03/08/2025 7:29 AM CDT) eGFR 34(L) >=60 mL/min/1. 73 m2 Comment: [...] 7:29 AM CDT 03/08/2025 7:35 AM CDT Monico Bryant MD LAB BLOOD ORDERABLES Malena l Result [facility] Department [place] [address] * Differential, auto (03/08/2025 7:29 AM CDT) Neutrophil abs 4.85 1.50 - 6.50 K/cumm Comment:Testing performed by : [facility], [address] [place] [phone] Lymphocyte abs 1.38 0.80 - 3.30 K/cumm [facility] Comment:Testing performed by : [facility], [address] [place], [place] [phone] Monocyte abs 0.69 0.20 - 0.80 K/cumm [facility]ER [facility] Comment:Testing performed by : [facility], [address] [place] [phone] Eosinophil abs 0.08 0.00 - 0.50 K/cumm [facility]J Comment:Testing performed by : [facility], [address] [place] [phone] Basophil abs 0.04 0.00 - 0.10 K/cumm [facility] BJ Comment:Testing performed by : [facility], [address] [place] [phone] Neutrophil pct 69.0 % [facility] Comment: Interpretive Data Percent cell count reference ranges are not reported, since discordance with absolute values may lead to misinterpretation of CBC data. Current Interpretive Data was last revised on 2017. Testing performed by: [facility], [address] [place] [phone] Lymphocyte pct 19.6 % [facility] Comment: Interpretive Data Percent cell count reference ranges are not reported, since discordance with absolute values may lead to misinterpretation of CBC data. Current Interpretive Data was last revised on 2017. Testing performed by: [facility], [address] [place] [phone] Monocyte pct 9.8 % [facility] Comment: Interpretive Data Percent cell count reference ranges are not reported, since discordance with absolute values may lead to misinterpretation of CBC data. Current Interpretive Data was last revised on 2017. Testing performed by: [facility], [address] [place], [place] [phone] Eosinophil pct 1.2 % BOBBI SCHWARTZ Comment: Interpretive Data Percent cell count reference ranges are not reported, since discordance with absolute values may lead to misinterpretation of CBC data. Current Interpretive Data was last revised on 2017. Testing performed by: [facility], [address] [place] [address] Basophil pct 0.5 % BOBBI SHCWARTZ Comment: Interpretive Data Percent cell count reference ranges are not reported, since discordance with absolute values may lead to misinterpretation of CBC data. Current Interpretive Data was last revised on 2017. Testing performed by: [facility], [address] [place], [place] [phone] Blood 03/08/2025 7:29 AM CDT 03/08/2025 7:31 AM CDT Monico Bryant MD LAB BLOOD ORDERABLES Malena napoles Result [facility] Department [place] [address] * Chromogranin A (03/08/2025 7:29 AM CDT) Chromogranin A 80 <93 ng/mL [facility] Comment: ADDITIONAL INFORMATION The testing method is a homogeneous time-resolved immunofluorescent assay manufactured by [employer] and performed on the [employer] Kryptor Compact Plus. Values obtained with different [...] examination and other findings. Test Performed by: [facility] [address] [place] [address] Rn Circulating: Swathi Malagon Ph.D.; CLIA# [id number] Blood 03/08/2025 7:29 AM CDT 03/08/2025 9:42 AM CDT Monico Bryant MD LAB BLOOD ORDERABLES Malena napoles Result [facility] Department [place] [address] [facility] * (ABNORMAL) CBC with auto differential (03/08/2025 7:29 AM CDT) WBC 7.04 3.80 - 9.90 K/cumm Comment:Testing performed by : [facility], [address] [place] [address] Hgb 12.5(L) 13.0 - 17.5 g/dL [facility] Comment:Testing performed by : [facility], [address] [place] [address] Hct 36.8(L) 38.9 - 50.3 % [facility] Comment:Testing performed by : [facility], [address] [place] [address] Plt 183 150 - 400 K/cumm [facility] Comment:Testing performed by : [facility], [address] [place], [place] [phone] MPV 8.2 6.8 - 10.4 fL [facility] Comment:Testing performed by : [facility], [address] [place], [place] [phone] RBC 4.33 4.30 - 5.80 M/cumm [facility] Comment:Testing performed by : [facility], [address] [place], [place] [phone] MCV 85.1 81.3 - 96.4 fL [facility] Comment:Testing performed by : [facility], [address] [place], [place] [phone] MCH 28.8 27.1 - 33.3 pg [facility] Comment:Testing performed by : [facility], [address] [place], [place] [phone] MCHC 33.9 32.3 - 35.7 g/dL [facility] Comment:Testing performed by : [facility], [address] [place], [place] [phone] RDW CV 14.5 11.1 - 14.9 % [facility] Comment:Testing performed by : [facility], [address] [place], [place] [phone] NRBC abs 0.00 0.00 - 0.01 K/cumm [facility] Comment:Testing performed by : [facility], [address] [place], [place] [phone] Blood 03/08/2025 7:29 AM CDT 03/08/2025 7:31 AM CDT us Monico Bryant MD LAB BLOOD ORDERABLES Malena l Result [facility] Department [place] [address] * Serotonin serum (03/08/2025 7:29 AM CDT) Serotonin 41 <=230 ng/mL [facility] Comment: ADDITIONAL INFORMATION This test was developed and its performance characteristics determined by [facility] in a manner consistent with CLIA requirements. This test has not been cleared or approved by the U.S. Food and Drug Administration. Test Performed by: [facility] - [facility] [address] [place] [address] Rn Circulating: Swathi Malagon Ph.D.; CLIA# [id number] Blood 03/08/2025 7:29 AM CDT 03/08/2025 9:44 AM CDT Monico Bryant MD LAB BLOOD ORDERABLES Malena yesika Result [facility] Department [place] [address] [facility] * (ABNORMAL) Comprehensive metabolic panel (03/08/2025 7:29 AM CDT) Sodium 139 135 - 145 mmol/L Potassium, pl 4.2 3.3 - 4.9 mmol/L [facility] Chloride 101 97 - 110 mmol/L [facility] CO2 28 22 - 32 mmol/L [facility] Anion gap 10 2 - 15 mmol/L [facility] BUN 47(H) 6 - 25 mg/dL [facility] Creatinine 2.02(H) 0.80 - 1.30 mg/dL [facility] Glucose 170 70 - 199 mg/dL [facility] Comment: Interpretive Data Fasting glucose >/= [...] classification and Diagnosis of Diabetes Diabetes Care 2022; 46: S19-S40. Current interpretive data was last revised 2022. Calcium 10.2 8.5 - 10.3 mg/dL [facility] Bilirubin, total 0.3 0.1 - 1.2 mg/dL [facility] Protein, pl 7.4 6.5 - 8.5 g/[facility] Albumin 4.4 3.5 - 5.0 g/dL [facility] Alk phos 27(L) 40 - 130 Units/L [facility] ALT 16 7 - 55 Units/L [facility] AST 30 10 - 50 Units/L [facility] Blood 03/08/2025 7:29 AM CDT 03/08/2025 7:35 AM CDT us Monico Bryant MD LAB BLOOD ORDERABLES Malena l Result [facility] Department [place] [address] * CT Chest Abdomen Pelvis W Contrast [...] it. Electronically signed by: Lyn Hunt M.D. Monico Bryant MD IMG CT PROCEDURES Final R esult from Last 3 Months or Most Recently Relevant to Health Maintenance Insurance MEDICARE AET SENIOR SUPPLEMENT MEDICARE AET SENIOR SUPPLEMENT MEDICARE AETNA SENIOR SUPPLEMENT Advance Directives For more information, please contact: [phone] * Full Code (Latest Code Status on File) Date Activated Date Inactivated Comments 10/12/2024 1:02 PM 10/14/2024 4:13 PM Care Teams Tennis Net Maker Relationship Specialty Start Date End Date Nathan Echavarria MD [facility][NOTE 3] DR LEE [address] [place] [id number] PCP - General Family Medicine 11/11/23 Monico Bryant MD [address] [facility] [address] [place] [address] Consulting Physician Medical Oncology 01/06/24
--- OUTSIDE RECORDS SUMMARY | 2025-05-27 03:03 | XMS_ITS | Clinical Summary ---
Author Organization [facility] Address [address] 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
--- NOTE | 2025-05-27 07:11 | WPDHPUPDATE1 ---
History and Physical Update Update Date/Time: 05/27/25 07:11 History and Physical has been reviewed, including an updated exam of the patient. There are NO changes in the patient's condition. Risks, benefits, and alternatives have been discussed and questions answered. Patient agrees to proceed with procedure. Plan 74 yo M with lesion of hard palate will schedule removal of excision of a hard palate lesion under general anesthesia Risks ,benefits,alternatives,and complications including bleeding ,infection ,pain ,need for further surgery was thoroughly discusses with the patient the patient agreed to go ahead and have the surgery done which will be schedule din timely manner
[2025-05-27] MEDS: LACTATED RINGERS 1,000 ML 30 ML IV CONT (07:45)
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
[2025-05-27] MEDS: TRANEXAMIC ACID 1,000MG/ISO100 1,000 MG/100 ML BAG 200 MG IVPB (09:00)
[2025-05-27] MEDS: ceFAZolin 2 GM in SODIUM CHLORIDE 0.9% IV 50 ML 100 ML IVPB (09:00)
[2025-05-27] MEDS: LIDO 1%/EPINEPHRINE 1:100,000 50 ML VIAL INFILTRATE (09:19)
--- NOTE | 2025-05-27 09:28 | S_PTH ---
PATIENT: Herman Smalls LOC: [facility] U#:[id number] AGE/SX: 74/M ROOM: RE05/27/[address]: Audelia Rangel MD : 1950 BED: DIS: 05/27/2025 SPEC #: [id number] RECD: 05/27/25 10:11 STATUS: TANIA RENancy #: [id number] SHANIKA: 05/27/25 09:[address]: Audelia Rangel DEPT: [facility] Surgical RECD BY: Travis Sumner ENTERED: 05/27/25 10:11 SP TYPE: Surgical OTHR DR: Nathan Echavarria MD Tissues: A - LESION Procedures: Hematoxylin and Eosin Stain Gross and Microscopic Level 4
--- NOTE | 2025-05-27 09:32 | W.PM.PROC2 ---
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 The patient was taken to the operating room, sedated and placed under general anesthesia with an endotracheal intubation. Eyes were taped and were prepped and draped in the usual sterile fashion. Molt Mouth gag was used to expose the hard palate lesion . 1 mL of lidocaine 1% epinephrine 1/100 1000 was injected in the base of the lesion, using surgical blade #15 , an incision was made in the hard palate mucosa, the lesion was identified as hard bone, no cystic component could be seen, the mucosa covering the lesion as well as the hard component were removed, the surgical incision site was left heal on secondary intention No bleeding could be seen after completing the procedure At this point was handed over to the anesthesia for Emergence from Anesthesia. Transferred to PACU? Estimated Blood Loss 1 (ml) Drains No Packing No Pathology Yes (right and left tonsil) Complications No immediate complications Condition Stable Disposition PACU [facility] Billing Surgery - Charge Forward: Surgery Billing
== END 2025-05-27 11:00 | disposition home or self-care (01) ==
PROVIDERS: PCP Family Medicine; Visit Provider Otolaryngology Otolaryngology/Facial Plastic Surgery
PROC: (CPT 42104; principal; 2025-05-27 09:00)
DX: K11.5 Sialolithiasis (principal); G89.18 Other acute postprocedural pain; I10 Essential (primary) hypertension; E11.9 Type 2 diabetes mellitus without complications; E78.2 Mixed hyperlipidemia; G47.33 Obstructive sleep apnea (adult) (pediatric); N40.0 Benign prostatic hyperplasia without lower urinary tract symptoms; R00.1 Bradycardia, unspecified; F41.9 Anxiety disorder, unspecified; Z79.4 Long term (current) use of insulin; Z79.84 Long term (current) use of oral hypoglycemic drugs; Z99.89 Dependence on other enabling machines and devices; Z98.890 Other specified postprocedural states; Z86.0100 Personal history of colon polyps, unspecified; Z87.891 Personal history of nicotine dependence; Z80.41 Family history of malignant neoplasm of ovary; Z82.49 Family history of ischemic heart disease and other diseases of the circulatory system
CPT/HCPCS: 42104; 82948; 88305; J0690; J1100; J2003; J2004; J2405; J2704; J3010; J3290; J7120